=== PATIENT | female | born 1985 | race Caucasian/White ===

== ENCOUNTER 2021-07-22 01:53 | Inpatient (IN) | payer OTHER, SELFPAY ==
[2021-07-22] VITALS (17 sets, daily range): BP systolic 90–117; BP diastolic 52–80; PULSE 54–71; RESP 16–18; TEMP 36.2–36.8; O2SAT 98–100; BMI 21.9
--- NOTE | ~2021-07-22 | US_ITS ---
EXAMINATION: US ABDOMEN LIMITED CLINICAL INFORMATION: Rule out cholecystitis. COMPARISON: CT from earlier today TECHNIQUE: Real-time imaging of the right upper quadrant abdominal viscera. FINDINGS: PANCREAS: The visualized proximal portion of the pancreas is unremarkable. The distal portion is obscured secondary to overlying bowel gas. LIVER: The liver is normal in size. The liver contour is normal. Parenchymal echogenicity is normal. No focal hepatic lesion. There is no intrahepatic biliary duct dilatation seen. GALLBLADDER: The gallbladder is distended with wall thickness of the upper limits of normal. Gallbladder sludge is identified. No discrete shadowing gallstones are seen. Pericholecystic fluid is present. Right upper quadrant tenderness was reported during the exam. COMMON BILE DUCT: Normal in caliber measuring up to 0.5 cm in diameter. RIGHT KIDNEY: No hydronephrosis. No renal calculi or focal parenchymal lesions. The kidney measures 10.6 cm in maximum dimension. FREE FLUID: None. US/US abdomen limited IMPRESSION: Distended gallbladder with sludge, borderline wall thickening, and pericholecystic fluid. Though no discrete gallstones are seen, appearance may reflect acute cholecystitis in the proper clinical setting. If more definitive assessment is needed, nuclear medicine hepatobiliary scan may be helpful to assess for cystic duct obstruction.
--- NOTE | ~2021-07-22 | CT_ITS ---
EXAMINATION: CT ABDOMEN AND PELVIS WITH CONTRAST CLINICAL INFORMATION: Right upper quadrant pain, history of multiple obstructions and surgeries COMPARISON: 11/03/2018 TECHNIQUE: Multidetector volumetric images were obtained from the superior aspect of the liver through the pubic symphysis following administration 85 mL of Omnipaque 350 intravenous contrast. Sagittal and coronal reformatted images were obtained on the technologist's workstation. Oral contrast: No This CT examination was performed using dose optimization techniques as appropriate, variously including the following: *Automated exposure control *Adjustment of mA and/or kV according to patient size (this includes techniques or standardized protocols for targeted exams where dose is matched to indication/reason for exam; i.e. extremities or head) *Use of iterative reconstruction technique DLP: 371 mGy-cm FINDINGS: LUNG BASES: The visualized lung bases are unremarkable. LIVER, GALLBLADDER, AND BILIARY TREE: The liver is normal in size, shape, and attenuation. No focal hepatic lesion or biliary ductal dilatation is present. The gallbladder is distended with pericholecystic fluid and stranding, concerning for sequelae of acute cholecystitis. PANCREAS: Unremarkable. SPLEEN: Unremarkable. ADRENAL GLANDS: Unremarkable. KIDNEYS AND URETERS: The kidneys are normal in size, shape, and attenuation. A few scattered small renal hypodensities bilaterally statistically favor cysts, too small to characterize. No hydronephrosis, hydroureter, or obstructing calculi seen. No perinephric stranding. BLADDER: Unremarkable. GASTROINTESTINAL TRACT: Large bowel is located predominantly in the right abdomen, with: In the central to left abdomen. Enterocolonic anastomosis is present in the upper abdomen. Much of the colon is distended with gas and stool. No specific evidence for bowel obstruction. No significant bowel wall thickening is seen. No free air identified. ABDOMINAL WALL: No significant hernia is appreciated. LYMPH NODES: Normal. VASCULAR: Unremarkable. PELVIC VISCERA: Posterior uterine fibroid suspected. OSSEOUS STRUCTURES: Unremarkable. CT/CT abdomen pelvis w con IMPRESSION: 1. Distended gallbladder with adjacent fluid and stranding, concerning for acute cholecystitis. Correlation with ultrasound is recommended. 2. Distended colon with gas and stool, without specific findings for obstruction.
[2021-07-22 02:33] LABS: Appearance Urine HAZY; Color Urine YELLOW; Glucose Urine UA NEG (NEG); Leukocyte Esterase Urine NEG (NEG); Nitrite Urine NEG (NEG); Specific Gravity - Urine >= 1.030 (1.005-1.025); UACC Culture Trigger NO; Urine Blood 1+ (NEG); Urine Ketones NEG (NEG); Urine Protein NEG (NEG-TRACE)
[2021-07-22 02:36] LABS: UPreg QC Valid YES; Urine Pregnancy NEGATIVE (NEGATIVE)
[2021-07-22 02:41] LABS: Bacteria Urine 2+ /LPF; Calcium Oxalate Crystals Urine 4+ /LPF; Hyaline Casts Urine 0-2 /LPF; Mucus Urine TRACE /LPF; RBC Urine 0-2 /HPF (0); Squamous Epithelial Cell Urine 3+ /LPF; WBC Urine 0-2 /HPF (0-4)
--- NOTE | 2021-07-22 03:10 | ED_ITS ---
HPI - Abdominal Pain General Chief Complaint: Abdominal Pain Stated Complaint: R side abdominal pain Time Seen by Provider: 07/22/21 02:46 Source: patient Mode of arrival: ambulatory Limitations: no limitations History of Present Illness HPI narrative: Patient comes emergency room complaining of right upper quadrant pain starting approximately 12 hours ago. Patient states she feels constant pain radiating towards her back, patient complaining of nausea, patient has not had any vomiting or diarrhea. Of note, approximately 5 days ago, patient had a LEEP procedure done at [facility]. Patient states that she has been recovering well otherwise. 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 Patient has not had small bowel obstructions in adulthood. Patient denies fever chills, no chest pain, no shortness of breath. Related Data Home Medications Medication Instructions Recorded Confirmed No Known Home Meds 07/22/21 07/22/21 Allergies Allergy/AdvReac Type Severity Reaction Status Date / Time penicillin V Allergy Unknown hives Verified 03/01/18 00:00 Penicillins [PENICILLINS] Allergy Unknown RASH Unverified 06/13/20 15:34 Sulfa (Sulfonamide Allergy Unknown Verified 03/01/18 00:00 Antibiotics) Review of Systems Review of Systems Constitutional : No Weight loss, No Fever, No Chills, No Night Sweats, No Fatigue, No Malaise ENT/Mouth : No Hearing loss, No Ear Pain, No Nasal Congestion, No Sinus Pain, No Hoarseness, No sore throat, No Rhinorrhea, No Swallowing Difficulty Eyes: No Eye Pain, No Swelling, No Redness, No Foreign Body, No Discharge, No Vision Changes Cardiovascular : No Chest Pain, No SOB, No Dyspnea on Exertion, No Orthopnea, No Edema, No Palpitations Respiratory : No Cough, No Sputum, No Wheezing, No Smoke Exposure, No Dyspnea Gastrointestinal : Complaining of nausea, No Vomiting, No Diarrhea, complaining of abdominal distension, right upper quadrant pain Genitourinary : no irregular bleeding, No Dysuria, No Urinary Frequency, No [place], No Urinary Incontinence, No Urgency, No Flank Pain, No Urinary Flow Changes, No Hesitancy Musculoskeletal : No joint pain, No Myalgias, No Joint Swelling Skin : No Skin Lesions, No rash Neuro : No Weakness, No Numbness, No Paresthesias, No Loss of Consciousness, No Dizziness, No Headache Psych : No Anxiety/Panic, No Depression, No SI/HI/AH/VH, No Social Issues, Heme/Lymph: No Bruising, No Bleeding,No Lymphadenopathy Endocrine : No Polyuria, No Polydipsia, No Temperature Intolerance Physical Exam Vital Signs: Vital Signs: Last Vital Signs Temp 97.9 F 07/22/21 05:46 Pulse 64 07/22/21 06:48 Resp 16 07/22/21 06:48 BP 96/64 07/22/21 06:48 Pulse Ox 100 07/22/21 06:48 Body Mass Index 21.9 Const: Other: Appearance: Alert. Oriented X3. No acute distress but looks uncomfortable Eyes: Pupils equal, round and reactive to light. ENT: Pharynx normal. Neck: Normal inspection. Neck supple. No lymph nodes noted. No crepitus CVS: Normal heart rate and rhythm. Pulses normal. Normal S1 and S2 Respiratory: No respiratory distress. Breath sounds normal. No Wheezing. No rales Abdomen: Soft , distended, tender to palpation over the right upper quadrant and epigastric area. No pain in the left upper and lower quadrant, positive Grayson sign Skin: Skin warm and dry. Normal skin color. Normal skin turgor. Extremities: No lower extremity edema. No lower extremity edema. No Lacerations. No Rash Neuro: Oriented X 3. No motor deficit. No sensory deficit. Moving all extermities. No slurred speech. Course Course Course Narrative: The CT scan radiology report is not available yet, however the gallbladder looks grossly distended, concerning for acute cholecystitis, will go ahead and get an ultrasound. Patient is still having significant abdominal pain after morphine, patient will be given 1 mg of Dilaudid Patient was started on 750 mg of levofloxacin, and 500 mg of metronidazole I discussed the patient CT scan and ultrasound with Dr. Cooper. He will be in shortly to assess the patient, diagnosis is likely acute cholecystitis sign out given to Dr. Escalona [facility] - Abdominal Pain Lab Data Result diagrams: 07/22/21 02:59 07/22/21 02:59 Labs: Lab Results 07/22/21 07/22/21 07/22/21 Range/Units 02:15 02:15 02:59 WBC 9.3 (4.8-10.8) X10*3/uL RBC 3.90 L (4.20-5.50) X10*6/uL Hgb 12.3 (12.0-16.0) g/dl Hct 36.0 L (37-47) % MCV 92.3 (80-98) fL MCH 31.5 (27.0-33.0) pg MCHC 34.2 (31.0-35.0) g/dl RDW 12.1 (11.0-16.0) % Plt Count 274 (160-400) X10*3/uL MPV 10.0 (9.4-12.3) fL Immature Gran % (Auto) 0.3 (0.0-0.4) % Neut % (Auto) 71.0 (45-73) % Lymph % (Auto) 19.7 L (20-40) % [place] % (Auto) 6.9 (2-11) % Eos % (Auto) 1.9 (0-4) % Baso % (Auto) 0.2 (0-2) % Lymph # (Auto) 1.8 (1.2-4.9) X10*3/uL [place] # (Auto) 0.6 (0.1-1.2) X10*3/uL Eos # (Auto) 0.2 (0.0-0.4) X10*3/uL Baso # (Auto) 0.0 (0.0-0.2) X10*3/uL Abs Immat Gran (auto) 0.03 (0.00-0.03) X10*3/uL Absolute Neuts (auto) 6.6 (2.0-8.3) X10*3/uL Absolute Nucleated RBC 0.000 (0.0-0.012) X10*3/uL Nucleated RBC % (auto) 0.0 (0.0-0.2) /100WBC Sodium (135-145) mmol/L Potassium (3.3-5.1) mmol/L Chloride (96-108) mmol/L Carbon Dioxide (22-29) mmol/L Anion Gap (12-20) BUN (9-16) mg/dL Creatinine (0.5-1.4) mg/dL Estim Creat Clear Calc Estimated GFR Random Glucose (60-115) mg/dL Lactic Acid (0.5-2.0) mmol/L Calcium (8.4-10.2) mg/dL Total Bilirubin (0.0-1.0) mg/dL Direct Bilirubin (0.0-0.5) mg/dL AST (5-31) U/L ALT (0-31) U/L Alkaline Phosphatase (39-117) U/L Total Protein (6.5-8.0) g/dL Albumin (3.5-5.0) g/dL Urine Color YELLOW Urine Appearance HAZY Urine pH 6.0 (5.0-8.0) Ur Specific [place] >= 1.030 H (1.005-1.025) Urine Protein NEG (NEG-TRACE) MG/DL Urine Glucose (UA) NEG (NEG) MG/DL Urine Ketones NEG (NEG) MG/DL Urine Blood 1+ H (NEG) Urine Nitrite NEG (NEG) Ur Leukocyte Esterase NEG (NEG) Urine RBC 0-2 (0) /HPF Urine WBC 0-2 (0-4) /HPF Ur Squamous Epith Cells 3+ /LPF Calcium Oxalate Crystal 4+ /LPF Urine Bacteria 2+ /LPF Hyaline Casts 0-2 /LPF Urine Mucus TRACE /LPF Urine Test NEGATIVE (NEGATIVE) 07/22/21 07/22/21 Range/Units 02:59 02:59 WBC (4.8-10.8) X10*3/uL RBC (4.20-5.50) X10*6/uL Hgb (12.0-16.0) g/dl Hct (37-47) % MCV (80-98) fL MCH (27.0-33.0) pg MCHC (31.0-35.0) g/dl RDW (11.0-16.0) % Plt Count (160-400) X10*3/uL MPV (9.4-12.3) fL Immature Gran % (Auto) (0.0-0.4) % Neut % (Auto) (45-73) % Lymph % (Auto) (20-40) % [place] % (Auto) (2-11) % Eos % (Auto) (0-4) % Baso % (Auto) (0-2) % Lymph # (Auto) (1.2-4.9) X10*3/uL [place] # (Auto) (0.1-1.2) X10*3/uL Eos # (Auto) (0.0-0.4) X10*3/uL Baso # (Auto) (0.0-0.2) X10*3/uL Abs Immat Gran (auto) (0.00-0.03) X10*3/uL Absolute Neuts (auto) (2.0-8.3) X10*3/uL Absolute Nucleated RBC (0.0-0.012) X10*3/uL Nucleated RBC % (auto) (0.0-0.2) /100WBC Sodium 139 (135-145) mmol/L Potassium 3.9 (3.3-5.1) mmol/L Chloride 110 H (96-108) mmol/L Carbon Dioxide 21 L (22-29) mmol/L Anion Gap 12 (12-20) BUN 10 (9-16) mg/dL Creatinine 0.75 (0.5-1.4) mg/dL Estim Creat Clear Calc 83.6 Estimated GFR > 60 Random Glucose 100 (60-115) mg/dL Lactic Acid 1.4 (0.5-2.0) mmol/L Calcium 9.0 (8.4-10.2) mg/dL Total Bilirubin 0.5 (0.0-1.0) mg/dL Direct Bilirubin 0.2 (0.0-0.5) mg/dL AST 16 (5-31) U/L ALT 14 (0-31) U/L Alkaline Phosphatase 66 (39-117) U/L Total Protein 6.2 L (6.5-8.0) g/dL Albumin 3.9 (3.5-5.0) g/dL Urine Color Urine Appearance Urine pH (5.0-8.0) Ur Specific [place] (1.005-1.025) Urine Protein (NEG-TRACE) MG/DL Urine Glucose (UA) (NEG) MG/DL Urine Ketones (NEG) MG/DL Urine Blood (NEG) Urine Nitrite (NEG) Ur Leukocyte Esterase (NEG) Urine RBC (0) /HPF Urine WBC (0-4) /HPF Ur Squamous Epith Cells /LPF Calcium Oxalate Crystal /LPF Urine Bacteria /LPF Hyaline Casts /LPF Urine Mucus /LPF Urine Test (NEGATIVE) Imaging Data CT scan - abdomen: Radiologist's impression: FINDINGS: LUNG BASES: The visualized lung bases are unremarkable.? LIVER, GALLBLADDER, AND BILIARY TREE: The liver is normal in size, shape, and attenuation. No focal hepatic lesion or biliary ductal dilatation is present. The gallbladder is distended with pericholecystic fluid and stranding, concerning for sequelae of acute cholecystitis.? PANCREAS: Unremarkable.? SPLEEN: Unremarkable.? ADRENAL GLANDS: Unremarkable.? KIDNEYS AND URETERS: The kidneys are normal in size, shape, and attenuation. A few scattered small renal hypodensities bilaterally statistically favor cysts, too small to characterize. No hydronephrosis, hydroureter, or obstructing calculi seen. No perinephric stranding. BLADDER: Unremarkable.? GASTROINTESTINAL TRACT: Large bowel is located predominantly in the right abdomen, with: In the central to left abdomen. Enterocolonic anastomosis is present in the upper abdomen. Much of the colon is distended with gas and stool. No specific evidence for bowel obstruction. No significant bowel wall thickening is seen. No free air identified.? ABDOMINAL WALL: No significant hernia is appreciated.? LYMPH NODES: Normal. VASCULAR: Unremarkable. PELVIC VISCERA: Posterior uterine fibroid suspected.? OSSEOUS STRUCTURES: Unremarkable.? CT/CT abdomen pelvis w con IMPRESSION: 1.? Distended gallbladder with adjacent fluid and stranding, concerning for acute cholecystitis. Correlation with ultrasound is recommended. 2.? Distended colon with gas and stool, without specific findings for obstruction. Discharge Plan Discharge Clinical Impression: Abdominal pain Patient Disposition: Home, Self-Care Prescriptions: No Action No Known Home Meds RF: 0 Stand Alone Forms: Work/School Release Interventions: ED Discharge Assessment Last Done: 07/22/21 03:20 [facility] Past Medical History Medical History (Updated 07/22/21 @ 06:04 by Codie Shafer MD) IBS (irritable bowel syndrome) Intestinal obstruction Reflux esophagitis Surgical abdomen Social History Social History Alcohol intake: current Alcohol intake frequency: a few times a month Alcohol type: wine and hard liquor Patient Tobacco Use Status: Current everyday Tobacco user Use of substances other than those prescribed or required for medical reasons: No Advance Directives: No Advance Directives Information Provided: No Patient : No
[2021-07-22 03:16] LABS: MANUAL DIFF FLAG NO
[2021-07-22 03:21] LABS: Basophils Percent Auto 0.2 % (0-2); Eosinophils Absolute Auto 0.2 X10*3/uL (0.0-0.4); Eosinophils Percent Auto 1.9 % (0-4); Hemoglobin 12.3 g/dl (12.0-16.0); Imm Gran Abs Auto 0.03 X10*3/uL (0.00-0.03); Imm Gran Pct Auto 0.3 % (0.0-0.4); Lymphocytes Absolute Auto 1.8 X10*3/uL (1.2-4.9); Lymphocytes Percent Auto 19.7 % (20-40); Mean Corpuscular HGB Conc 34.2 g/dl (31.0-35.0); Mean Corpuscular Hemoglobin 31.5 pg (27.0-33.0); Mean Corpuscular Volume 92.3 fL (80-98); Monocytes Absolute Auto 0.6 X10*3/uL (0.1-1.2); Monocytes Percent Auto 6.9 % (2-11); Neutrophils Absolute Auto 6.6 X10*3/uL (2.0-8.3); Platelet Count 274 X10*3/uL (160-400); Red Cell Distribution Width 12.1 % (11.0-16.0); White Blood Count 9.3 X10*3/uL (4.8-10.8)
[2021-07-22 03:26] LABS: Lactic Acid 1.4 mmol/L (0.5-2.0)
[2021-07-22 03:32] LABS: Alanine Aminotransferase 14 U/L (0-31); Albumin Level 3.9 g/dL (3.5-5.0); Alkaline Phosphatase 66 U/L (39-117); Anion Gap 12 (12-20); Aspartate Amino Transferase 16 U/L (5-31); Bilirubin Direct 0.2 mg/dL (0.0-0.5); Bilirubin Total 0.5 mg/dL (0.0-1.0); Blood Urea Nitrogen 10 mg/dL (9-16); Carbon Dioxide 21 mmol/L (22-29); Chloride 110 mmol/L (96-108); Creatinine Clr Calc Pharmacy 83.6; Estimated Glomerular Filt Rate > 60; Glucose Random 100 mg/dL (60-115); Potassium 3.9 mmol/L (3.3-5.1); Sodium 139 mmol/L (135-145); Total Protein 6.2 g/dL (6.5-8.0)
[2021-07-22] MEDS: 0.9 % Sodium Chloride 1,000 ML 999 ML IVCONT ×2 (03:45→06:13)
[2021-07-22] MEDS: ondansetron HCL 4 MG/2 ML VIAL IVPUSH ×2 (03:46→08:14)
[2021-07-22] MEDS: Morphine Sulfate 4 MG/ML CARTRIDGE IVPUSH ×2 (03:49→06:13)
[2021-07-22] MEDS: iohexoL 350 MG/ML 100 ML INFUS..BTL 85 ML IV (04:07)
[2021-07-22] MEDS: HYDROmorphone HCl 1 MG/ML SYRINGE IVPUSH (04:44)
--- NOTE | 2021-07-22 04:53 | PC.NURSE ---
pt taken to ultra sound.
[2021-07-22] MEDS: metroNIDAZOLE/NS 500 MG/100 ML PIGGYBACK 100 MG IV (05:47)
[2021-07-22] MEDS: levoFLOXacin/D5W 750 MG/150 ML PIGGYBACK 100 MG IV (06:45)
--- NOTE | 2021-07-22 07:00 | PC.NURSE ---
report taken from lewis wahl pt here for r side abd pain w nausea, awaiting general surgeon consult this morning, pt w extensive abd sx hx. pain in control att, resting comfortably in stretcher. all questions and comments answered at this time.
--- NOTE | 2021-07-22 07:21 | PC.NURSE ---
dr garcia at bedside for consult
--- NOTE | 2021-07-22 08:18 | PC.NURSE ---
pt nauseous and vomiting, given zofran iv. wctm for effect.
[2021-07-22] MEDS: Dextrose 5 % and 0.45 % NaCl 1,000 ML 80 ML IVCONT ×2 (09:42→22:16)
--- NOTE | 2021-07-22 12:54 | P.HPGS_ITS ---
History of Present Illness History of Present Illness Date of Service: 07/22/21 Chief complaint: R side abdominal pain Narrative: Bharti Street is a 35 year old female who came to the emergency room early this morning because of abdominal pain. She says this started around 03:00 o'clock yesterday afternoon. She describes mostly on the entire right side of her abdomen, right chest, all the way to the right hip area. She says that this was constant and persisted throughout the night. She has had some nausea this morning. She says that she has chronic GI issues and used to see a black jack dealer all the time. She has not seen 1 since last year. She has had 11 abdominal surge archie since she was an because of what she described as ?obstruction? over intestines. She currently states that her pain has improved significantly as has very minimal pain at this time. Review of Systems Constitutional: Constitutional: Denies chills and Denies fever(s) Cardiovascular: Cardiovascular: Denies chest pain, Denies dyspnea and Denies dyspnea on exertion Respiratory: Respiratory: Denies cough, Denies dyspnea and Denies dyspnea on exertion Gastrointestinal: Gastrointestinal: Denies hematochezia and Denies change in bowel habits Genitourinary: Genitourinary: Denies hematuria Musculoskeletal: Musculoskeletal: Denies back pain and Denies limited range of motion Neurologic: Denies focal weakness and Denies convulsions Psychiatric: Psychiatric: Denies depression and Denies mood swings PMFSH Past Medical History Medical History IBS (irritable bowel syndrome) Intestinal obstruction Reflux esophagitis Surgical abdomen Social History Social History Household Members: Children Housing: House Housing Other:: two family home Do you presently have visiting nurse or other home services: No Alcohol intake: current Alcohol intake frequency: a few times a month Alcohol type: wine and hard liquor Patient Tobacco Use Status: Current everyday Tobacco user Tobacco use type: Cigarette e-Cigarette/Vaping Use: Never Used Second Hand Smoke Exposure: Yes Substance Use Type: Marijuana service: No Current occupational status: employed Meds Allergies Allergy/AdvReac Type Severity Reaction Status Date / Time penicillin V Allergy Unknown hives Verified 03/01/18 00:00 Penicillins [PENICILLINS] Allergy Unknown RASH Verified 07/22/21 17:26 Sulfa (Sulfonamide Allergy Unknown Unknown Verified 07/22/21 17:26 Antibiotics) Active Medications: Current Medications Dextrose/Sodium Chloride (D51/2ns) 1,000 mls @ 80 mls/hr IVCONT .[id number] [facility] Last Admin: 07/22/21 09:42 Dose: 80 mls/hr Documented by: Morphine Sulfate (Morphine Sulfate 4 Mg/Ml Cartridge) 2 mg IVPUSH Q4H PRN; Protocol PRN Reason: Pain, Severe (Pain Scale 7-10) Ondansetron HCl (Ondansetron Hcl 4 Mg/2 Ml Vial) 4 mg IVPUSH Q8H PRN PRN Reason: Nausea and Vomiting Oxycodone HCl (Oxycodone Hcl Immed Release 5 Mg Tablet) 5 mg PO Q6H PRN PRN Reason: Pain, Moderate (Pain Scale 4-6 Sodium Chloride (0.9 % Sodium Chloride Flush 3 Ml Syringe) 3 ml IVFLUSH QSHIFT [facility] Physical Exam Vital Signs: Vital Signs: Last Vital Signs Temp 97.6 F 07/22/21 10:18 Pulse 57 07/22/21 10:18 Resp 18 07/22/21 10:18 BP 101/63 07/22/21 10:18 Pulse Ox 99 07/22/21 10:18 Body Mass Index 21.9 Const: General: comfortable and no acute distress Orientation/consciousness: patient oriented x3 Neck: Neck: Yes no lymphadenopathy Resp: Auscultation: clear to auscultation bilaterally Cardio: Rhythm: regular rhythm GI: Other: Currently no Grayson sign, very minimal tenderness to deep palpation, diffuse; multiple surgical scars on the abdomen Palpation (GI): Soft to palpation, nontender and no guarding Neuro: General: patient oriented x3 Results Results Labs: Short CBC 07/22/21 Range/Units 02:59 WBC 9.3 (4.8-10.8) X10*3/uL Hgb 12.3 (12.0-16.0) g/dl Hct 36.0 L (37-47) % Plt Count 274 (160-400) X10*3/uL BMP 07/22/21 02:59 Sodium 139 Potassium 3.9 Chloride 110 H Carbon Dioxide 21 L BUN 10 Creatinine 0.75 Calcium 9.0 Liver Function 07/22/21 Range/Units 02:59 Total Bilirubin 0.5 (0.0-1.0) mg/dL Direct Bilirubin 0.2 (0.0-0.5) mg/dL AST 16 (5-31) U/L ALT 14 (0-31) U/L Alkaline Phosphatase 66 (39-117) U/L Albumin 3.9 (3.5-5.0) g/dL Urine 07/22/21 07/22/21 Range/Units 02:15 02:15 Urine Color YELLOW Urine Appearance HAZY Urine pH 6.0 (5.0-8.0) Ur Specific [place] >= 1.030 H (1.005-1.025) Urine Protein NEG (NEG-TRACE) MG/DL Urine Glucose (UA) NEG (NEG) MG/DL Urine Test NEGATIVE (NEGATIVE) Abdomen CT scan report/results: report reviewed and image reviewed CT scan - pelvis: report reviewed and image reviewed Assessment and Plan (1) Abdominal pain: Status: Acute She describes pain initially as on the right chest, right side of the abdomen all the way to the right hip. She says that this had become diffuse over time. Currently she has minimal pain and tenderness. I have reviewed her CAT scan and ultrasound. She does not have gallstones but has some borderline thickening of the gallbladder and distension, suggestive of acalculous cholecystitis. She has no leukocytosis. She has no fever and has normal liver function tests. Her diagnosis is uncertain at this time as she also has chronic history of IBS along with multiple abdominal surgeries. She has a very benign exam. I had recommended to her to be admitted at least for observation to see how she does. She initially stated that she wanted to leave the hospital as she has a trip to [place] coming up. I was able to convince her to stay at least for tonight so we can follow her. Her mother was with her during the discussion. Quality Stroke Does the patient have a stroke diagnosis?: No VTE Prior VTE?: No VTE Risk Level:: Medical - low VTE Device Contraindication: Treatment Not Indicated VTE Drug Contraindication: Treatment Not Indicated Procedures Date of Service Date of Service: 07/22/21
--- NOTE | 2021-07-22 15:50 | PM.EVENT ---
Event Note Date of Service: 07/22/21 Event Note: Some nausea Abdominal pain almost resolved Stable vital signs Abdomen soft, nontender at this time, no guarding rebound Keep on clear liquids for today Nausea medications Repeat labs tomorrow morning Patient understands plan
--- NOTE | 2021-07-22 17:01 | PC.NURSE ---
Admit today for medical management of acute cholecystitis. IV fluids running. Nausea has improved, thus also improving her pain. She is tolerating clear liquids in small doses, resting well.
[2021-07-22] MEDS: oxyCODONE HCl Immed Release 5 MG TABLET PO (17:42)
[2021-07-23 07:27] VITALS: BP 99/61; PULSE 60; RESP 17; TEMP 36.2; O2SAT 98
[2021-07-23 07:29] LABS: Hematocrit 34.9 % (37-47); Hemoglobin 11.5 g/dl (12.0-16.0); Mean Corpuscular Hemoglobin 30.7 pg (27.0-33.0); Mean Corpuscular Volume 93.3 fL (80-98); Mean Platelet Volume 10.5 fL (9.4-12.3); Platelet Count 245 X10*3/uL (160-400); Red Blood Count 3.74 X10*6/uL (4.20-5.50); Red Cell Distribution Width 12.2 % (11.0-16.0); White Blood Count 7.7 X10*3/uL (4.8-10.8)
[2021-07-23 07:51] LABS: Alanine Aminotransferase 18 U/L (0-31); Albumin Level 3.3 g/dL (3.5-5.0); Alkaline Phosphatase 58 U/L (39-117); Anion Gap 10 (12-20); Aspartate Amino Transferase 17 U/L (5-31); Bilirubin Direct 0.3 mg/dL (0.0-0.5); Bilirubin Total 0.7 mg/dL (0.0-1.0); Blood Urea Nitrogen 4 mg/dL (9-16); Calcium 8.3 mg/dL (8.4-10.2); Carbon Dioxide 23 mmol/L (22-29); Chloride 110 mmol/L (96-108); Creatinine Clr Calc Pharmacy 89.5; Estimated Glomerular Filt Rate > 60; Glucose Random 95 mg/dL (60-115); Potassium 3.9 mmol/L (3.3-5.1); Sodium 139 mmol/L (135-145); Total Protein 5.4 g/dL (6.5-8.0)
[2021-07-23] MEDS: Dextrose 5 % and 0.45 % NaCl 1,000 ML 80 ML IVCONT ×2 (09:45→23:06)
[2021-07-23 11:19] VITALS: BP 98/59; PULSE 66; RESP 18; TEMP 36.1; O2SAT 99
[2021-07-23 14:57] VITALS: BP 100/58; PULSE 66; RESP 20; TEMP 36.8; O2SAT 99
--- NOTE | 2021-07-23 15:14 | P.PNGS_ITS ---
Subjective Subjective Date of Service: 07/23/21 Interval history: Has had very early mild pain Last pain medication was last night Started on regular diet for lunch Says she tolerated this although with some bloating Had bowel movements Physical Exam Vital Signs: Vital Signs: Last Vital Signs Temp 98.2 F 07/23/21 14:57 Pulse 66 07/23/21 14:57 Resp 20 07/23/21 14:57 BP 100/58 L 07/23/21 14:57 Pulse Ox 99 07/23/21 14:57 Body Mass Index 21.9 Const: Other: Chemistry 07/22/21 07/23/21 02:59 06:33 Sodium 139 139 Potassium 3.9 3.9 Carbon Dioxide 21 L 23 BUN 10 4 L D Creatinine 0.75 0.70 Calcium 9.0 8.3 L D Hematology 07/22/21 07/23/21 02:59 06:33 WBC 9.3 7.7 Hgb 12.3 11.5 L Plt Count 274 245 Urinalysis 07/22/21 02:15 Urine Color YELLOW Urine Appearance HAZY Urine pH 6.0 Ur Specific [place]it y >= 1.030 H Urine Protein NEG Urine Glucose (UA) NEG Urine Ketones NEG Urine Blood 1+ H Urine Nitrite NEG Ur Leukocyte Ping ase NEG Urine RBC 0-2 Urine WBC 0-2 Ur Squamous Epith Cells 3+ Hyaline Casts 0-2 General: comfortable and no acute distress Eyes: Sclerae: sclerae normal Resp: Effort & Inspection: normal respiratory effort Cardio: Rate: regular rate GI: Other: Minimal diffuse tenderness to deep palpation, no guarding, no rebound, no Grayson's sign Palpation (GI): Soft to palpation, not firm and no guarding Procedures Date of Service Date of Service: 07/23/21 Progress Note: A&P Assessment and plan (1) Abdominal pain: Status: Acute Assessment and Plan: Has had no pain since last night No leukocytosis No Grayson's sign Tenderness is mostly diffuse, very mild Clinically not consistent with acute cholecystitis She does state she has some bloating Overall doing very well Re-evaluate in the morning and likely discharge Fall Risk Details Current Medications: Current Medications Dextrose/Sodium Chloride (D51/2ns) 1,000 mls @ 80 mls/hr IVCONT .[id number] [facility] Last Admin: 07/23/21 09:45 Dose: 80 mls/hr Documented by: Morphine Sulfate (Morphine Sulfate 4 Mg/Ml Cartridge) 2 mg IVPUSH Q4H PRN; Protocol PRN Reason: Pain, Severe (Pain Scale 7-10) Ondansetron HCl (Ondansetron Hcl 4 Mg/2 Ml Vial) 4 mg IVPUSH Q8H PRN PRN Reason: Nausea and Vomiting Oxycodone HCl (Oxycodone Hcl Immed Release 5 Mg Tablet) 5 mg PO Q6H PRN PRN Reason: Pain, Moderate (Pain Scale 4-6 Last Admin: 07/22/21 17:42 Dose: 5 mg Documented by: Sodium Chloride (0.9 % Sodium Chloride Flush 3 Ml Syringe) [facility] Admin: 07/23/21 07:43 Dose: Not Given Documented by: Time Spent With Patient Time: Total time spent is greater than 50% in coordination of care (as documented) at patient's floor/unit and/or counseling patient: Time with patient: 15 - 24 minutes Quality Stroke Does the patient have a stroke diagnosis?: No VTE Prior VTE?: No VTE Risk Level:: Medical - low VTE Device Contraindication: Treatment Not Indicated VTE Drug Contraindication: Treatment Not Indicated
[2021-07-23] MEDS: Simethicone 80 MG TAB.CHEW PO (17:32)
[2021-07-23] MEDS: 0.9 % Sodium Chloride Flush 3 ML SYRINGE IVFLUSH (20:12)
[2021-07-23] MEDS: Morphine Sulfate 4 MG/ML CARTRIDGE 2 MG IVPUSH (20:16)
[2021-07-23] MEDS: oxyCODONE HCl Immed Release 5 MG TABLET PO (23:05)
[2021-07-23 23:38] VITALS: BP 98/49; PULSE 57; RESP 18; TEMP 36.1; O2SAT 98
[2021-07-24 07:47] VITALS: BP 103/57; PULSE 69; RESP 18; TEMP 36.7; O2SAT 98
--- NOTE | 2021-07-24 08:48 | PM.PNGS ---
Subjective Subjective Date of Service: 07/24/21 Interval history: She says she has some bloating and had to take pain medications last night for this Had BMs yesterday Passing flatus States that she is ready to go home Tolerating diet Physical Exam Vital Signs: Vital Signs: Last Vital Signs Temp 98.0 F 07/24/21 07:47 Pulse 69 07/24/21 07:47 Resp 18 07/24/21 07:47 BP 103/57 L 07/24/21 07:47 Pulse Ox 98 07/24/21 07:47 Body Mass Index 21.9 Const: General: comfortable and no acute distress Resp: Effort & Inspection: normal respiratory effort Cardio: Rate: regular rate GI: Inspection: No distended Palpation (GI): Soft to palpation, not firm, nontender, no guarding and not rigid Procedures Date of Service Date of Service: 07/24/21 Progress Note: A&P Assessment and plan (1) Abdominal pain: Status: Acute Assessment and Plan: Clinically not consistent with the acute cholecystitis She has had no leukocytosis No Grayson's sign Her main complaints are mostly diffuse abdominal bloating She does have a long history of IBS she says Exam remains very benign The patient says she is ready to be discharged Explained to her to watch her diet and to make sure that she establishes a follow-up with a juke box servicer again I also advised her to find a primary care physician she does not have 1 currently I can not see her for follow-up visit in the office She understands the plan well and is in agreement Fall Risk Details Current Medications: Current Medications Dextrose/Sodium Chloride (D51/2ns) 1,000 mls @ 80 mls/hr IVCONT .[id number] [facility] Last Admin: 07/23/21 23:06 Dose: 80 mls/hr Documented by: Morphine Sulfate (Morphine Sulfate 4 Mg/Ml Cartridge) 2 mg IVPUSH Q4H PRN; Protocol PRN Reason: Pain, Severe (Pain Scale 7-10) Last Admin: 07/23/21 20:16 Dose: 2 mg Documented by: Ondansetron HCl (Ondansetron Hcl 4 Mg/2 Ml Vial) 4 mg IVPUSH Q8H PRN PRN Reason: Nausea and Vomiting Oxycodone HCl (Oxycodone Hcl Immed Release 5 Mg Tablet) 5 mg PO Q6H PRN PRN Reason: Pain, Moderate (Pain Scale 4-6 Last Admin: 07/23/21 23:05 Dose: 5 mg Documented by: Simethicone (Simethicone 80 Mg Tab.Chew) 80 mg PO QIDWMHS PRN PRN Reason: Gas Last Admin: 07/23/21 17:32 Dose: 80 mg Documented by: Sodium Chloride (0.9 % Sodium Chloride Flush 3 Ml Syringe) 3 ml IVFLUSH QSHIFT [facility] Last Admin: 07/24/21 07:11 Dose: Not Given Documented by: Time Spent With Patient Time: Total time spent is greater than 50% in coordination of care (as documented) at patient's floor/unit and/or counseling patient: Time with patient: 15 - 24 minutes Quality Stroke Does the patient have a stroke diagnosis?: No VTE Prior VTE?: No VTE Risk Level:: Medical - low VTE Device Contraindication: Treatment Not Indicated VTE Drug Contraindication: Treatment Not Indicated
--- NOTE | 2021-07-28 10:44 | PM.DS ---
DS: Providers Provider Date of Service: 06/24/21 Date of admission: 07/22/21 08:10 Primary care physician: None Physician DS: Diagnosis Discharge Diagnosis (1) Abdominal pain: Status: Acute DS: Summary Hospital Course Hospital Course: 35-year-old female admitted on 07/22/2021 because of right-sided abdominal pain. She says that extended all the way from the right chest to the right hip area. She had no leukocytosis. Her LFTs were normal. Her CAT scan ultrasound did not show gallstones but there was some borderline thickening of the gallbladder along with distension suggestive of acalculous cholecystitis. However, clinical exam was not consistent with cholecystitis. I however admitted her for observation. She continued to have a benign exam during the hospital stay. She was kept on clear liquids. Her abdominal pain was generally below intensity. Her diet was therefore gradually advanced. She she also stated that she had long-standing GI problems with IBS and had been previously seeing a bridge ironworker. She continued to improved and tolerated regular diet. She was therefore discharged on 07/24/2021. At the time of her discharge, she was tolerating regular diet and did not have any significant pain or tenderness. She did not have any leukocytosis or any fever. Status at Discharge Functional status at discharge: independent ambulation Time Spent with Patient Time attestation: Total time spent providing and/or coordinating discharge services: Discharge coordination time: Less than 30 minutes Quality: Stroke Does the patient have a stroke diagnosis?: No Physical Exam Vital Signs: Vital Signs: Last Vital Signs Temp 98.0 F 07/24/21 07:47 Pulse 69 07/24/21 07:47 Resp 18 07/24/21 07:47 BP 103/57 L 07/24/21 07:47 Pulse Ox 98 07/24/21 07:47 Body Mass Index 21.9 Const: General: comfortable and no acute distress Orientation/consciousness: patient oriented x3 Neck: Neck: Yes no lymphadenopathy Resp: Auscultation: clear to auscultation bilaterally Cardio: Rhythm: regular rhythm GI: Palpation (GI): Soft to palpation, nontender and no guarding Neuro: General: patient oriented x3 DS: Data Imaging CT scan - abdomen: Radiologist's impression: ITS Impressions Abdomen/Pelvis CT 07/22/21 02:57 IMPRESSION: 1. Distended gallbladder with adjacent fluid and stranding, concerning for acute cholecystitis. Correlation with ultrasound is recommended. 2. Distended colon with gas and stool, without specific findings for obstruction. Abdomen Ultrasound 07/22/21 04:39 IMPRESSION: Distended gallbladder with sludge, borderline wall thickening, and pericholecystic fluid. Though no discrete gallstones are seen, appearance may reflect acute cholecystitis in the proper clinical setting. If more definitive assessment is needed, nuclear medicine hepatobiliary scan may be helpful to assess for cystic duct obstruction. Discharge Plan Discharge Patient Disposition: Home, Self-Care Discharge Diagnosis: abdominal pain Referrals: Judd Cooper MD [Physician] - 2 Weeks Physician,None [Primary Care Provider] - 1 Week Discharge Medications: New simethicone 125 mg tablet,chewable 125 mg PO QID PRN (Reason: for gassiness/bloating) Qty: 20 RF: 0 Discharge Orders: Discharge Order (Routine); Ordered 07/24/21 Ordered By: Judd Cooper Diet: low fat, low cholesterol Activity on Discharge: As tolerated Stand Alone Forms: Patient Portal Discharge page, Work/School Release Care Plan Goals: Return to normal activities gradually. Health Concerns: IBS, surgical abdomen Plan of Treatment: DIscharge to home, f/u with PCP Assessment: Improved Discharge Date/Time: 07/24/21 12:07
== END 2021-07-24 12:07 | disposition home or self-care (01) | DRG 251 ==
LOC: HO.ED 08:02 → HO.EDOVER 08:19 → HO.IMC 08:49
PROVIDERS: Emergency Medicine; Admitting Provider Surgery; Emergency Provider Emergency Medicine; Visit Provider Surgery
DX: R10.9 Unspecified abdominal pain (principal); F17.210 Nicotine dependence, cigarettes, uncomplicated; Z88.0 Allergy status to penicillin; Z88.2 Allergy status to sulfonamides; Z71.6 Tobacco abuse counseling
CPT/HCPCS: 36415; 74177; 76705; 80048; 80076; 81001; 81025; 83605; 85025; 85027; 87040; 96361; 96365; 96375; 96376; 99285; J1170; J1956; J2270; J2405; Q9967

== ENCOUNTER 2023-03-02 13:21 | Emergency (ER) | payer BC, SELFPAY ==
--- NOTE | 2023-03-02 13:31 | ED_ITS ---
HPI - Arrhythmia/Palpitations General Chief Complaint: General Medical Stated Complaint: Chest palpitations randomly Time Seen by Provider: 03/02/23 18:23 Source: patient Mode of arrival: ambulatory Limitations: no limitations History of Present Illness HPI narrative: 37 y/o female with history of short gut syndrome, malabsorption, presents to the ER for evaluation of weird chest sensations for the last 3 days. Feels like a pause and release. Occurred several times today. No chest pain. She states she has had them for the last 6 months but they have become more frequent lately. No associated SOB, chest pain, dizziness or lightheadedness. She sometimes get a warm sensation across her chest. She denies any cardiac or pulmonary history. MD complaint: palpitations and irregular heart beat Onset (ago): month(s) Duration: intermittent Severity: moderate Context: occurred during rest Associated symptoms: denies other symptoms Related Data Previous Rx's Medication Instructions Recorded simethicone 125 mg chewable tablet 125 mg PO QID PRN for 07/24/21 gassiness/bloating #20 tabs Allergies Allergy/AdvReac Type Severity Reaction Status Date / Time penicillin V Allergy Unknown hives Verified 03/02/23 13:37 Penicillins [PENICILLINS] Allergy Unknown RASH Verified 03/02/23 13:37 Sulfa (Sulfonamide Allergy Unknown Unknown Verified 03/02/23 13:37 Antibiotics) Review of Systems Review of Systems: Yes all other systems are reviewed and are negative [facility] Past Medical History Medical History IBS (irritable bowel syndrome) Intestinal obstruction Reflux esophagitis Surgical abdomen Social History Social History Household Members: Children Housing: House Housing Other:: two family home Do you presently have visiting nurse or other home services: No Alcohol intake: current Alcohol intake frequency: a few times a month Alcohol type: wine and hard liquor Patient Tobacco Use Status: Current everyday Tobacco user Tobacco use type: Cigarette e-Cigarette/Vaping Use: Never Used Second Hand Smoke Exposure: Yes Substance Use Type: Marijuana Advance Directives: No Advance Directives Information Provided: No service: No Current occupational status: employed Physical Exam Vital Signs: Vital Signs: Last Vital Signs Temp 97.4 F 03/02/23 13:32 Pulse 84 03/02/23 13:32 Resp 18 03/02/23 13:32 BP 146/91 H 03/02/23 13:32 Pulse Ox 100 03/02/23 13:32 O2 Del Method Room Air 03/02/23 13:32 BMI result Body Mass Index 25.3 Appearance: Alert. Oriented X3. No acute distress. Head: normocephalic, atraumatic. Eyes: Pupils equal, round and reactive to light. ENT: Pharynx normal. No tonsillar swelling or exudate. Neck: Normal inspection. Neck supple. CVS: Normal heart rate and rhythm. Pulses normal. Respiratory: No respiratory distress. Breath sounds normal. Abdomen: Soft and nontender. +BS x4 Skin: Skin warm and dry. Normal skin color. Normal skin turgor. No rashes. Extremities: No lower extremity edema. No joint swelling. Neuro/psych: Oriented X 3. No motor deficit. No sensory deficit. CN II-XII intact. Normal speech and cognition. Course Course Course Narrative: RME - 37 y/o female with history of short gut syndrome, malabsorption, presents to the ER for evaluation of weird chest sensations for the last 3 days. Feels like a pause and release. Occurred several times today. No chest pain. HR 80s in triage. Plan: EKG, lab workup Medical Decision Making Medical Decision Making [facility] Narrative: 37 yo female presenting with intermittent palpitations acute on chronic. EKG is unchanged from prior. No PVCs seen. Electrolytes and TSH are normal. She is asking if she can go home. Her labs and VS were reviewed. Comfortable w/ d/c home with PCP and Cardiology follow up. Differential Diagnosis Differential Diagnoses: The differential diagnosis associated with the presentation includes benign palpitations, SVT, PVCs, PACs, afib, bradyarrythmia, tachyarrythmia, anxiety Lab Data [facility] Lab Attestation statement: I reviewed the patient's lab results. unremarkable 03/02/23 13:55 03/02/23 13:55 Labs: Lab Results 03/02/23 03/02/23 Range/Units 13:55 13:55 WBC 10.5 (4.8-10.8) X10*3/uL RBC 4.12 L (4.20-5.50) X10*6/uL Hgb 12.9 (12.0-16.0) g/dl Hct 38.2 (37.0-47.0) % MCV 92.7 (80.0-98.0) fL MCH 31.3 (27.0-33.0) pg MCHC 33.8 (31.0-35.0) g/dl RDW 12.0 (11.0-16.0) % Plt Count 329 (160-400) X10*3/uL MPV 9.1 L (9.4-12.3) fL Immature Gran % (Auto) 0.4 (0.0-0.4) % Neut % (Auto) 63.7 (45-73) % Lymph % (Auto) 28.0 (20-40) % Morris % (Auto) 6.5 (2-11) % Eos % (Auto) 1.1 (0-4) % Baso % (Auto) 0.3 (0-2) % Lymph # (Auto) 2.9 (1.2-4.9) X10*3/uL Morris # (Auto) 0.7 (0.1-1.2) X10*3/uL Eos # (Auto) 0.1 (0.0-0.4) X10*3/uL Baso # (Auto) 0.0 (0.0-0.2) X10*3/uL Abs Immat Gran (auto) 0.04 H (0.00-0.03) X10*3/uL Absolute Neuts (auto) 6.7 (2.0-8.3) x10*3/uL Absolute Nucleated RBC 0.000 (0.0-0.012) X10*3/uL Nucleated RBC % (auto) 0.0 (0.0-0.2) /100WBC Sodium 139 (135-145) mmol/L Potassium 4.0 (3.3-5.1) mmol/L Chloride 111 H (96-108) mmol/L Carbon Dioxide 19 L (22-29) mmol/L Anion Gap 13 (12-20) BUN 9 (9-16) mg/dL Creatinine 0.66 (0.5-1.4) mg/dL Estim Creat Clear Calc 102.6 Estimated GFR > 60 Random Glucose 91 (60-115) mg/dL Calcium 9.0 D (8.4-10.2) mg/dL Magnesium 1.8 (1.6-2.6) mg/dL Total Bilirubin 0.4 (0.0-1.0) mg/dL Direct Bilirubin 0.1 (0.0-0.5) mg/dL AST 33 H (5-31) U/L ALT 42 H (0-31) U/L Alkaline Phosphatase 64 (39-117) U/L Total Protein 6.6 (6.5-8.0) g/dL Albumin 4.0 (3.5-5.0) g/dL TSH 1.36 (0.32-4.0) uIU/mL Independent Interpretation I performed an independent interpretation of an: EKG Interpretation: normal sinus rhythm, HR 68, normal MO interval, normal QTC, no PVCs. No ST segment elevations or depressions. no change from prior in 2013 Independent Historian Clinical information obtained from an independent historian. History obtained from or confirmed by: Parent External Record Review External record reviewed: Outpatient record and Prior outpatient labs Critical Care Time Critical Care Time Critical Care Time: No Discharge Plan Discharge Clinical Impression: Heart palpitations Patient Disposition: Home, Self-Care Instructions: Heart Palpitations (DC) Additional Instructions: your lab workup today was unremarkable EKG was unchanged from prior recommend following up with your primary care doctor and cardiology if you have ongoing symptoms - name and number below Prescriptions: No Action simethicone 125 mg tablet,chewable 125 mg PO QID PRN (Reason: for gassiness/bloating) Qty: 20 0RF Referrals: [facility] [place] [facility] [Provider Group] (palpitations) Ching Nieves FNP [Primary Care Provider] - Stand Alone Forms: Work/School Release Interventions: ED Discharge Assessment Last Done: 03/02/23 18:25 Discharge Date/Time: 03/02/23 18:29
[2023-03-02 13:32] VITALS: BP 146/91; PULSE 84; RESP 18; TEMP 36.3; O2SAT 100; BMI 25.3
--- NOTE | 2023-03-02 13:34 | ECG_ITS ---
Test Reason : PALPITATIONS Blood Pressure : / mmHG Vent. Rate : 068 BPM Atrial Rate : 068 BPM P-R Int : 170 ms QRS Dur : 078 ms QT Int : 394 ms P-R-T Axes : 045 -13 010 degrees QTc Int : 418 ms Normal sinus rhythm Low voltage QRS Borderline ECG When compared with ECG of 20-SEP-2014 16:10, No significant change was found Referred By: Ching Alberts Electronically Signed By:Dagoberto Velez
[2023-03-02 14:04] LABS: MANUAL DIFF FLAG NO
[2023-03-02 14:07] LABS: Basophils Percent Auto 0.3 % (0-2); Eosinophils Absolute Auto 0.1 X10*3/uL (0.0-0.4); Eosinophils Percent Auto 1.1 % (0-4); Hematocrit 38.2 % (37.0-47.0); Hemoglobin 12.9 g/dl (12.0-16.0); Imm Gran Abs Auto 0.04 X10*3/uL (0.00-0.03); Imm Gran Pct Auto 0.4 % (0.0-0.4); Lymphocytes Absolute Auto 2.9 X10*3/uL (1.2-4.9); Mean Corpuscular HGB Conc 33.8 g/dl (31.0-35.0); Mean Corpuscular Hemoglobin 31.3 pg (27.0-33.0); Mean Corpuscular Volume 92.7 fL (80.0-98.0); Mean Platelet Volume 9.1 fL (9.4-12.3); Monocytes Absolute Auto 0.7 X10*3/uL (0.1-1.2); Monocytes Percent Auto 6.5 % (2-11); Neutrophils Absolute Auto 6.7 x10*3/uL (2.0-8.3); Neutrophils Percent Auto 63.7 % (45-73); Platelet Count 329 X10*3/uL (160-400); Red Blood Count 4.12 X10*6/uL (4.20-5.50); White Blood Count 10.5 X10*3/uL (4.8-10.8)
[2023-03-02 14:31] LABS: Alanine Aminotransferase 42 U/L (0-31); Alkaline Phosphatase 64 U/L (39-117); Anion Gap 13 (12-20); Aspartate Amino Transferase 33 U/L (5-31); Bilirubin Direct 0.1 mg/dL (0.0-0.5); Bilirubin Total 0.4 mg/dL (0.0-1.0); Blood Urea Nitrogen 9 mg/dL (9-16); Carbon Dioxide 19 mmol/L (22-29); Chloride 111 mmol/L (96-108); Creatinine Clr Calc Pharmacy 102.6; Estimated Glomerular Filt Rate > 60; Glucose Random 91 mg/dL (60-115); Magnesium 1.8 mg/dL (1.6-2.6); Sodium 139 mmol/L (135-145); Total Protein 6.6 g/dL (6.5-8.0)
[2023-03-02 14:46] LABS: TSH reflex Free T4 1.36 uIU/mL (0.32-4.0)
== END 2023-03-02 18:29 | disposition home or self-care (01) ==
PROVIDERS: Physician Assistant; Emergency Provider Emergency Medicine; PCP Nurse Practitioner Family
DX: R00.2 Palpitations (principal); F17.210 Nicotine dependence, cigarettes, uncomplicated; F12.90 Cannabis use, unspecified, uncomplicated; Z79.899 Other long term (current) drug therapy
CPT/HCPCS: 36415; 80048; 80076; 83735; 84443; 85025; 93005; 99282; 99283

== ENCOUNTER 2023-04-23 14:34 | Outpatient (AMB) | payer BC, SELFPAY ==
[2023-04-23 14:40] VITALS: BP 114/76; PULSE 72; RESP 12; TEMP 36.5; O2SAT 99; BMI 24.7
--- NOTE | 2023-04-23 14:40 | A.OFFPC_ITS ---
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 Patient states that shes been gaining alot of weight even though she doesnt eat much. Patient states that 2 years ago she was told she had sludge in her gallbladder but never followed up. Patient states that she thinks that she may have developed Crohn Disease. Detention Attendant Required: No Accompanied by: Daughter Allergies penicillin V Allergy (Unknown, Verified 04/23/23 14:52) hives Penicillins [PENICILLINS] Allergy (Unknown, Verified 04/23/23 14:52) RASH Sulfa (Sulfonamide Antibiotics) Allergy (Unknown, Verified 04/23/23 14:52) Unknown Tobacco use date assessed: 04/23/23 Dental Screening Dental Screen Date: 04/23/23 Did you have a dental visit in the last 12 months?: No Did you have a dental problem in the last 6 months where you did not have access to dental care?: No Was dental information given to patient?: Patient has dentist HPI HPI Comments History of Present Illness Details 37-year-old female presents to [facility]. She notes she was last evaluated by her former PCP 4-5 years ago. She has past medical history significant GI issues including IBS and intestinal obstruction. No acute symptoms today. She denies diagnose for anxiety and depression. She reports h/o 11 surgical procedures of her large intestine. 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 She requests GI referral. She was evaluated at [facility] on 03/02/2023 for ?weird chest sensations, for the past 6 months. EKG and labs were normal. She notes she has a follow up appointment with [facility]iology next month. [facility] Medical History (Updated 04/23/23 @ 15:34 by Aaron Soliz CNP) Depression Eczema Generalized headaches IBS (irritable bowel syndrome) Intestinal obstruction Memory loss Reflux esophagitis Sludge in gallbladder Surgical abdomen Surgical History (Updated 04/23/23 @ 14:56 by Stefanie Wang MA) H/O resection of large bowel Family History Brother Cholangiocarcinoma Mother Diabetes High blood pressure Father Diabetes High blood pressure Sister Diabetes Fatty liver Social History Household Members: Children Housing: House Housing Other:: two family home Do you presently have visiting nurse or other home services: No Alcohol intake: current Alcohol intake frequency: a few times a month Alcohol type: wine and hard liquor Patient Tobacco Use Status: Former Tobacco user Tobacco use type: Cigarette e-Cigarette/Vaping Use: Former Use Second Hand Smoke Exposure: Yes Substance Use Type: Marijuana service: No Current occupational status: employed 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 1. Little interest or pleasure in doing things: nearly every day 2. Feeling down, depressed, or hopeless: several days 3. Trouble falling or staying asleep, or sleeping too much: nearly every day 4. Feeling tired or having little energy: nearly every day 5. Poor appetite or overeating: nearly every day 6. Feeling bad about yourself - or that you are a failure or have let yourself or your family down: several days 7. Trouble concentrating on things, such as reading the newspaper or watching television: several days 8. Moving or speaking so slowly that other people could have noticed. Or the opposite - being so fidgety or restless that you have been moving around a lot more than usual: nearly every day 9. Thoughts that you would be better off or of hurting yourself in some way: not at all Total score: 18 Depression Screening Interpretation: Positive Depression Screening Follow-up: Change in Medication and Community Mental Health Worker F/U Source: Developed by Drs. Sav Gregory, Susie Manzanares, Paolo Farfan and colleagues, with an educational gurdeep from [employer]. Thrive Questionnaire Date Thrive assessed: 04/23/23 I am a: Patient What is your living situation today?: I have a steady place to live Within the past 12 months, did the food you bought not last and you didn't have the money to get more?: Never true Within the past 12 months, did you worry whether your food would run out before you got money to buy more?: Never true Do you have trouble paying for medicines?: No Do you have trouble getting transportation to medical appointments?: No Do you have trouble paying your heating and electricity bill?: No Do you have trouble taking care of your child, family member or friend?: No Do you have trouble with day-to-day activities such as bathing, preparing meals, shopping, managing finances, etc.?: No Are you currently unemployed and looking for a job?: No Are you interested in more education?: No Please select the resources that you would like help with: None Currently or been in a relationship where the following occur: no concerns reported AUDIT C Alcohol Use Questionnaire (AUDIT-C) 1. How often do you have a drink containing alcohol?: 2-4 times a month 2. How many drinks containing alcohol do you have on a typical day when you are drinking?: 3 or 4 3. How often do you have six or more drinks on one occasion?: Less than monthly Total Score: 4 CHEMA-7 AMB Questionnaire CHEMA-7 Date CHEMA - 7 assessed: 04/23/23 Feeling nervous, anxious, or on edge: 3 = Nearly every day Not being able to stop or control worryin = Several days Worrying too much about different things: 1 = Several days Trouble relaxin = Nearly every day Being so restless that it is hard to sit still: 1 = Several days Becoming easily annoyed or irritable: 3 = Nearly every day Feeling afraid as if something awful might happen: 0 = Not at all Total CHEMA-7 score (0-4 normal; 5-9 mild; 10-14 moderate; 15-21 severe): 12 Source: Developed by Drs. Sav Gregory, Susie Manzanares, Paolo Farfan and colleagues, with an educational gurdeep from [employer]. Review of Systems Const Details: Const Denies chills, Denies fatigue, Denies fever(s), Denies headache(s) and Denies weakness ENT Denies dizziness and Denies headache(s) Card Denies chest pain, Denies lightheadedness, Denies dyspnea and Denies other (Palpitations) Resp Denies cough, Denies dyspnea, Denies wheezing and Denies other ( shortness of breath) GI Denies abdominal pain, Denies melena, Denies hematochezia, Denies change in bowel habits, Denies dyspepsia and Denies nausea Denies hematuria and Denies dysuria Musc Denies abnormal gait, Denies myalgias, Denies arthralgias, Denies numbness and Denies tingling Skin/Breast Denies rash, Denies unusual bruising and Denies wounds Neuro Denies abnormal gait, Denies dizziness, Denies headache(s), Denies memory loss, Denies numbness, Denies Sensory deficit (Neuro), Denies tingling and Denies weakness Psych Denies anxiety and Denies depression, Denies memory loss Endo Denies fatigue Aller/Immun Denies wheezing Physical exam (Primary Care) Vital Signs: Last Vital Signs Temp 97.7 F 04/23/23 14:40 Pulse 72 04/23/23 14:40 Resp 12 04/23/23 14:40 BP 114/76 04/23/23 14:40 Pulse Ox 99 04/23/23 14:40 Oxygen Delivery Method Room Air 04/23/23 14:40 BMI result Body Mass Index 24.7 Tobacco/Smoking Status: Tobacco use Status Patient Tobacco Use Status Current everyday Tobacco 07/24/21 08:14 Tobacco use type Cigarette 07/22/21 10:25 e-Cigarette/Vaping Use Never Used 07/22/21 10:25 Depression Screening Interpretation: Positive Depression Screening Follow-up: Change in Medication and Community Mental Health Worker F/U Currently or been in a relationship where the following occur: no concerns reported Const Other: General: no acute distress and well developed Nutritional Appearance: well nourished Orientation/consciousness: patient oriented x3 HENMT Head: Yes normocephalic and Yes atraumatic Eyes General: appearance normal, both eyes and all related structures Pupils: Equal, round and reactive pupils present EOM: EOMs intact bilaterally Resp Effort & Inspection: normal respiratory effort Auscultation: clear to auscultation bilaterally Cardio Rate: regular rate Rhythm: regular rhythm Heart sounds: S1 normal heart sound present, S2 normal heart sound present, no gallops, no murmurs and no rubs GI Palpation (GI): No Abdominal aortic bruit present, Soft to palpation, nontender, No hepatosplenomegaly present and No Rebound tenderness present Auscultation: normal bowel sounds General: Yes no CVA tenderness Back/Spine/Pelvis Back: no CVA tenderness Cervical Spine: cervical ROM normal and No Cervical spine tenderness Thoracic/Lumbar Spine: thoraco-lumbar ROM normal, No pain with thoraco-lumbar ROM, No thoracic spinal tenderness and No lumbar spinal tenderness Extrem General: Yes normal to inspection, No edema and No calf tenderness Skin General: warm and dry. Normal skin color. Normal skin turgor Lesions: no lesions Rashes: no rashes Trauma: no lacerations or abrasions Wounds: no wounds Nails: normal Neuro General: patient oriented x3, gait normal and no focal neuro deficit Cranial nerves: Yes Equal, round and reactive pupils present Cognition (Neuro): normal cognition Gait exam (Neuro): Normal gait present Sensory Exam: No Sensory deficit (Neuro) Psych Appearance: grossly normal Affect: normal affect Attitude: cooperative Thought process: Normal thought process present Assessment and Plan Assessment & Plan (1) Anxiety and depression: Code(s): F41.9 - Anxiety disorder, unspecified; F32.A - Depression, unspecified Plan: PHQ-9 and CHEMA-7 scores revealed moderately severe depression and moderate anxiety respectively Sertraline ordered. Take as prescribed Routine exercise encouraged Referred to the community navigator to help her connect to a therapist Follow-up with cardiology as planned Follow-up in 1 month or return sooner with worsening or new symptoms Verbalized understanding and agreed with treatment plan. (2) IBS (irritable bowel syndrome): Code(s): K58.9 - Irritable bowel syndrome without diarrhea Plan: She reports h/o 11 surgical procedures of her large intestine. 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 She requests GI referral. GI referral made Follow-up with symptoms or concerns Verbalized understanding and agreed with the plan. (3) Laboratory tests ordered as part of a complete physical exam (CPE): Code(s): Z00.00 - Encounter for general adult medical examination without abnormal findings Plan: Recent blood work were unremarkable except for elevated liver enzymes. Will repeat liver panel. Will check lipid panel. Fas and fasting glucose. labs ordered as part of a complete physical exam. Advised to fast for at least 10 hours before getting labs drawn. May drink water Verbalized understanding and agreed with treatment plan. Orders: Orders Glucose Fasting Today Z00.00 - Encounter for general adult medical examination without abnormal findings Lipid Panel Today Z00.00 - Encounter for general adult medical examination without abnormal findings Liver Panel Today Z00.00 - Encounter for general adult medical examination without abnormal findings UA CC w/rflx Micro + Cult Today Z00.00 - Encounter for general adult medical examination without abnormal findings Referrals Gastroenterology Referral K58.9 - Irritable bowel syndrome without diarrhea Nurse Navigator Referral F32.A - Depression, unspecified, F41.9 - Anxiety disorder, unspecified Medications: New sertraline 25 mg PO DAILY 30 tabs 3RF 30 days Coding Level of Care Code New Pt Level 3 (90098) Diagnoses Anxiety and depression F41.9; F32.A IBS (irritable bowel syndrome) K58.9 Laboratory tests ordered as part of a complete physical exam (CPE) Z00.00 Time Spent (min) 35
== END 2023-04-23 15:40 | disposition home or self-care (01) ==
PROVIDERS: PCP Nurse Practitioner Family; Visit Provider Nurse Practitioner Family
DX: F41.9 Anxiety disorder, unspecified (principal); F32.A Depression, unspecified; K58.9 Irritable bowel syndrome, unspecified; Z00.00 Encounter for general adult medical examination without abnormal findings
CPT/HCPCS: 99203

== ENCOUNTER 2023-05-05 06:17 | Outpatient (REF) | payer BC, SELFPAY ==
[2023-05-05 07:36] LABS: Alanine Aminotransferase 36 U/L (0-31); Albumin Level 3.9 g/dL (3.5-5.0); Alkaline Phosphatase 61 U/L (39-117); Aspartate Amino Transferase 29 U/L (5-31); Bilirubin Direct 0.2 mg/dL (0.0-0.5); Bilirubin Total 0.4 mg/dL (0.0-1.0); Cholesterol 136 mg/dL; Glucose Fasting 95 mg/dL (60-99); HDL Cholesterol 56 mg/dL; LDL Cholesterol Calculated 50 mg/dl; Total Protein 6.8 g/dL (6.5-8.0); Triglycerides 153 mg/dL
[2023-05-05 08:29] LABS: Appearance Urine Clear; Color Urine Yellow; Glucose Urine UA Negative (Negative); Leukocyte Esterase Urine Negative (Negative); Nitrite Urine Negative (Negative); PH 6.5 (5.0-9.0); Urine Blood Negative (Negative); Urine Ketones Trace mg/dL (Negative); Urine Protein Negative (Neg-Trace)
== END 2023-05-05 06:18 | disposition home or self-care (01) ==
LOC: HO.LAB 06:17
PROVIDERS: PCP Nurse Practitioner Family; Visit Provider Nurse Practitioner Family
DX: Z00.00 Encounter for general adult medical examination without abnormal findings (principal); R00.2 Palpitations
CPT/HCPCS: 36415; 80061; 80076; 81003; 82947; 93005

== ENCOUNTER 2023-05-05 13:36 | Outpatient (AMB) | payer BC, SELFPAY ==
[2023-05-05 13:57] VITALS: BP 124/80; PULSE 66; BMI 25.0
--- NOTE | 2023-05-05 13:57 | A.OFFVIS_ITS ---
Intake Vital Signs 05/05/23 13:57 Height 5 ft 2 in Weight 136 lb 10.986 oz BMI 25.0 BP 124/80 Blood Pressure Location Lt brachial Position Sitting Pulse 66 Intake Visit Reasons: ER follow up/Heart palpitations Intake Note: ER follow up Media Marketing Manager Required: No Accompanied by: Self / Same As Patient Allergies penicillin V Allergy (Unknown, Verified 05/05/23 13:58) hives Penicillins [PENICILLINS] Allergy (Unknown, Verified 05/05/23 13:58) RASH Sulfa (Sulfonamide Antibiotics) Allergy (Unknown, Verified 05/05/23 13:58) Unknown Medication List - Last Reconciled 05/05/23 by Moris Jaimes MD No Known Home Meds HPI HPI Comments History of Present Illness Details Bharti is here for consultation regarding palpitations. She states that she gets sensations of heart fluttering at different times. Her description might suggest PACs or PVCs. The last for a few seconds to a minute or so at the most; nothing prolonged. No other symptoms like anginal-type chest pains or shortness of breath of concern. No history of any coronary disease or cardiomyopathy or anything cardiac related in the past. [facility] Medical History (Updated 05/05/23 @ 14:12 by Moris Jaimes MD) Depression Eczema Generalized headaches IBS (irritable bowel syndrome) Intestinal obstruction Memory loss Reflux esophagitis Sludge in gallbladder Surgical abdomen Surgical History H/O resection of large bowel Family History Brother Cholangiocarcinoma Mother Diabetes High blood pressure Father Diabetes High blood pressure Sister Diabetes Fatty liver Social History (Updated 05/05/23 @ 14:00 by Nancy Chin) Household Members: Children Housing: House Housing Other:: two family home Do you presently have visiting nurse or other home services: No Alcohol intake: current Alcohol intake frequency: a few times a month Alcohol type: wine and hard liquor Patient Tobacco Use Status: Former Tobacco user e-Cigarette/Vaping Use: Former Use Second Hand Smoke Exposure: Yes Substance Use Type: Marijuana service: No Current occupational status: employed 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[employer]er [employer] [place] Cognitive needs: No Hearing needs: No Vision needs: No Review of Systems Const Denies chills, Denies daytime sleepiness, Denies fatigue, Denies fever(s), Denies frequent falls, Denies night sweats, Denies snoring, Denies weakness, Denies weight gain and Denies weight loss Eyes Denies loss of vision ENT Denies dizziness and Denies hearing loss Card Denies chest pain, Denies chest pain with activity, Denies syncope, Denies rapid heart rate, Denies edema, Denies claudication, Denies leg edema, Denies lightheadedness, Denies palpitations, Denies dyspnea, Denies dyspnea on exertion and Denies orthopnea Resp Denies cough, Denies excessive phlegm production, Denies dyspnea, Denies dyspnea on exertion, Denies snoring and Denies wheezing GI Denies abdominal pain, Denies hematochezia, Denies change in bowel habits, Denies change in stool character, Denies heartburn, Denies nausea and Denies vomiting Denies hematuria, Denies urinary frequency and Denies dysuria Musc Denies arthralgias, Denies muscle weakness, Denies numbness and Denies tingling Skin/Breast Denies nail changes and Denies rash Neuro Denies Abnormal speech present, Denies dizziness, Denies syncope, Denies frequent falls, Denies loss of vision, Denies memory loss, Denies numbness, Denies tingling and Denies weakness Psych Denies depression and Denies memory loss Endo Denies fatigue and Denies palpitations Aller/Immun Denies wheezing Physical Exam Vital Signs: Last Vital Signs Pulse 66 05/05/23 13:57 BP 124/80 05/05/23 13:57 BMI result Body Mass Index 25.0 Const General: comfortable and no acute distress Orientation/consciousness: patient oriented x3 HEENT Other: Unremarkable Head: Yes normal to inspection Neck Neck: Yes normal visual inspection Chest Chest palpation & inspection: normal inspection of the chest Resp Auscultation: clear to auscultation bilaterally Cardio Palpation: normal PMI Heart sounds: S1 normal heart sound present, S2 normal heart sound present, no gallops, no murmurs and no rubs GI Palpation (GI): Soft to palpation Back/Spine/Pelvis Other: unremarkable Skin General skin exam: no rashes or lesions noted Neuro General: patient oriented x3 Speech: No Abnormal speech present Extrem General: Yes normal to inspection Psych Mental Status: mental status grossly normal Office Procedures EKG Details: EKG with sinus rhythm at 66/Min; no significant ST-T changes and otherwise unremarkable[place] [id number], Complete Assessment & Plan Assessment & Plan (1) Heart palpitations: Code(s): R00.2 - Palpitations Plan Possible PACs versus PVCs. Doubt anything sustained. We can get an echocardiogram/Holter. Otherwise, mainly reassurance. Orders: Orders CA echo transthoracic complete Today R00.2 - Palpitations ECG 3 day holter monitor Today R00.2 - Palpitations Coding Level of Care Code New Pt Level 3 (32639) Diagnoses Heart palpitations R00.2 CPT Codes EKG - CPT: 05899-[id number], Complete ([id number])
== END 2023-05-05 14:21 | disposition home or self-care (01) ==
PROVIDERS: PCP Nurse Practitioner Family; Visit Provider Internal Medicine
DX: R00.2 Palpitations (principal)
CPT/HCPCS: 93010; 99203

== ENCOUNTER → 2023-05-12 14:34 | Outpatient (REF) | payer BC, SELFPAY ==
--- NOTE | 2023-05-12 14:37 | HM_ITS ---
Conclusion: 1. Patient was monitored for total period of 2 days and 23 hours 2. Baseline was normal sinus rhythm with average heart of 80 beats per minute 3. Rare PVCs noted with total burden of 0.06% 4. No significant pauses noted 5. Three out of the 22 reported markers with symptoms of heavy heartbeat, pause and release, racing in the heart correlated with isolated PVCs. All of the other events correlated with sinus rhythm. MTDD
== END ==
LOC: HO.CARD 14:34
PROVIDERS: PCP Nurse Practitioner Family; Visit Provider Internal Medicine
DX: R00.2 Palpitations (principal)
CPT/HCPCS: 93242

== ENCOUNTER → 2023-05-12 14:37 | Outpatient (BNV) | payer BC, SELFPAY | PROVIDERS: PCP Nurse Practitioner Family; Visit Provider Internal Medicine Cardiovascular Disease | DX: I49.3 Ventricular premature depolarization (principal) | CPT/HCPCS: 93244 ==

== ENCOUNTER 2023-05-17 13:16 | Outpatient (AMB) | payer BC, SELFPAY ==
--- NOTE | 2023-05-17 13:23 | MHC.OFFVIS ---
Intake Vital Signs 05/17/23 13:24 Height 5 ft 2 in Weight 134 lb 7.712 oz BMI 24.6 BP 126/84 Blood Pressure Location Lt brachial Position Sitting Pulse 68 Intake Visit Reasons: Irritable bowel syndrome wo Diarrhea Intake Note: Bharti presents in the office as a new patient for IBS wo diarrhea. CC: She states that she always has diarrhea but lately she is having issues with bowel movements. She will not have solid BMs but lately she will go to the bathroom once a day and everything she eats give her a stomach pains and she feels like she looks 5 months . No visible blood in her stool but she has had hx of blood in the stool and scar tissue. Has not seen a GI in the past 10 years. She was hospitalized here for her gall bladder. Clinical Marketing Manager Required: No Allergies penicillin V Allergy (Unknown, Verified 05/17/23 13:26) hives Penicillins [PENICILLINS] Allergy (Unknown, Verified 05/17/23 13:26) RASH Sulfa (Sulfonamide Antibiotics) Allergy (Unknown, Verified 05/17/23 13:26) Unknown HPI HPI Comments History of Present Illness Details This is a 37 year old female with hx of extensive gastrointestinal surgeries in infancy who is here for abdominal pain and changes in bowel habits. Pt reports hx of ?part of colon not working? ?? NEC, which necessitated removal and then followed by reconstruction. Reports having 11 surgeries in total in her first year of life. Has had hx of chronic abd discomfort with diarrhea which she has attributed to this. However for the past few months abd pain is more severe and happens more frequently. Associated now with ?relative? constipation i.e has 1 BM/day often with straining. Abd discomfort gets worse with this. Also noticing increase in bloating. Previous hx of smoking. No etOH use. PFSH Medical History Depression Eczema Generalized headaches IBS (irritable bowel syndrome) Intestinal obstruction Memory loss Reflux esophagitis Sludge in gallbladder Surgical abdomen Surgical History H/O resection of large bowel History of esophagogastroduodenoscopy (EGD) Hx of colonoscopy Family History Brother Cholangiocarcinoma Mother Diabetes High blood pressure Father Diabetes High blood pressure Sister Diabetes Fatty liver Social History Household Members: Children Housing: House Housing Other:: two family home Do you presently have visiting nurse or other home services: No Alcohol intake: current Alcohol intake frequency: a few times a month Alcohol type: wine and hard liquor Patient Tobacco Use Status: Former Tobacco user e-Cigarette/Vaping Use: Former Use Second Hand Smoke Exposure: Yes Substance Use Type: Marijuana service: No Current occupational status: employed Current occupation: S[employer] [place] Cognitive needs: No Hearing needs: No Vision needs: No Review of Systems Const All systems reviewed & are unremarkable except as noted in HPI and below Physical Exam Vital Signs: Last Vital Signs Pulse 68 05/17/23 13:24 BP 126/84 05/17/23 13:24 BMI result Body Mass Index 24.6 Gen appear: NAD HEENT: nonicteric, no cervical lymphadenopathy Chest: CTA CVS: Regular S1/S2 Abd: R sided hypertrophic scar, transverse scar, L sided small scar, soft, nontender, nondistended, bowel sounds + Ext: no peripheral edema Neuro: A/Ox3, noted to move all extremities spontaneously Psych: interacting appropriately Assessment & Plan Assessment & Plan (1) IBS (irritable bowel syndrome): Code(s): K58.9 - Irritable bowel syndrome without diarrhea (2) Abdominal pain: Code(s): R10.9 - Unspecified abdominal pain (3) Change in bowel habit: Code(s): R19.4 - Change in bowel habit Plan Appears consistent with IBS-mixed type. However will obtain work up to exclude malabsorption, thyroid issues, symptomatic cholelithiasis. Adhesive disease also strongly suspected. If work up comes back normal, will consider Amitiza In the meantime, pt to increase fiber intake. Take miralax as needed. Orders: Orders Calprotectin, Fecal Today R10.9 - Unspecified abdominal pain Comprehensive Met. Panel Today R10.9 - Unspecified abdominal pain TSH reflex Free T4 Today R10.9 - Unspecified abdominal pain Complete Blood Count no Diff Today R10.9 - Unspecified abdominal pain Immunoglobulin A Today R10.9 - Unspecified abdominal pain Transglutaminase IgA Today R10.9 - Unspecified abdominal pain US abdomen complete Today R10.9 - Unspecified abdominal pain Coding Level of Care Code New Pt Level 4 (78170) Diagnoses IBS (irritable bowel syndrome) K58.9 Abdominal pain R10.9 Change in bowel habit R19.4
[2023-05-17 13:24] VITALS: BP 126/84; PULSE 68; BMI 24.6
== END 2023-05-17 13:44 | disposition home or self-care (01) ==
PROVIDERS: PCP Nurse Practitioner Family; Visit Provider Internal Medicine
DX: K58.9 Irritable bowel syndrome, unspecified (principal); R10.9 Unspecified abdominal pain; R19.4 Change in bowel habit
CPT/HCPCS: 99204

== ENCOUNTER → 2023-05-17 13:16 | Outpatient (BNVA) | payer BC, SELFPAY | PROVIDERS: PCP Nurse Practitioner Family; Visit Provider Internal Medicine ==

== ENCOUNTER → 2023-06-07 12:45 | Outpatient (REF) | payer BC, SELFPAY ==
--- NOTE | 2023-06-07 12:48 | CA_ITS ---
Transthoracic Echocardiogram Patient (Last, First, Middle): Bharti Street, Gender: Female Date of : 1985 Age: 37 Procedure Date: 06/07/2023 Procedure Type: Transthoracic Echocardiogram Location: OP Height: 154.94 cm Weight: 62.14 kg BSA: 1.61 m2 Heart Rate: 66 bpm BP: 105 / 80 mmHg Pharmacy Innovation Assistant: WILMA Referring MD: Moris Jaimes MD Symptoms: R00.2 - Palpitations Study Quality: Fair ECG Rhythm: Sinus Conclusions: - The left ventricular systolic function is normal. The calculated ejection fraction is 59% by biplane method. - No obvious valvular pathology seen on this study. Findings Left Ventricle Normal left ventricular cavity size. There is normal left ventricular wall thickness. The left ventricular systolic function is normal. The calculated ejection fraction is 59% by biplane method. There is no evidence of regional wall motion abnormalities. Diastolic function is normal for age. Right Ventricle Normal right ventricular cavity size and systolic function. Atria Both atria are normal in size. Aortic Valve There is a normal trileaflet aortic valve. There is no aortic valve stenosis. There is no aortic valve regurgitation. Mitral Valve The mitral valve appears normal. There is trace mitral valve regurgitation. There is no mitral valve stenosis. Pulmonic Valve The pulmonic valve is likely normal. Tricuspid Valve Normal tricuspid valve structure. There is trace tricuspid valve regurgitation. There is no evidence of pulmonary hypertension. Great Vessels The asc aorta is normal in size. Venous The inferior vena cava is normal in size and collapses greater than 50% with inspiration. Pericardium/Pleural There is no evidence of pericardial effusion. Prior Study Comparison No prior study available for comparison. Recommendations, Care & Conclusions No obvious valvular pathology seen on this study. Measurements 2D Linear Measurements IVSd: 1.00 0.6-0.9/0.6-1.0 cm LVIDd: 3.80 3.9-5.3/4.2-5.9 cm LVIDd Index: 2.36 2.4-3.2/2.2-3.1 cm/m2 LVIDs: 2.60 2.0-3.6 cm LVPWd: 0.70 0.7-1.1 cm LA Diam: 2.70 2.7-3.8/3.0-4.0 cm LAIDs Index: 1.68 1.5-2.3 cm/m2 LV Mass: 115.96 67-162/88-224 g LV Mass Index: 72.03 43-95/49-115 g/m2 LVOT Diam: 1.80 3.0+(-)1.3 cm 2D Systolic Function EF 4C: 57.10 >55% EF 2C: 63.20 >55% EF BiP: 59.10 >55% Mitral Valve MV Pk E: 0.94 MV PK A: 0.50 MV Decel Time: 218.00 E/A: 1.90 E'Lateral: 13.80 E'Medial: 12.10 E/E' Med: 7.80 E/E' Lat: 6.80 PHT: 64.00 MVA PHT: 3.44 Decel [place]: 4.33 Aortic Valve AoV Pk Royer: 1.08 AoV Mn Royer: 0.88 AoV VTI: 0.27 AoV Pk Grad: 5.00 Aov Mn Grad: 3.00 ARACELIS Cont.VTI: 2.16 LVOT LVOT Pk Royer: 1.07 LVOT Mn Royer: 0.73 LVOT VTI: 0.23 LVOT Pk Grad: 5.00 LVOT Mn Grad: 2.00 LVOT Diam: 1.80 LVOT Area: 2.54 Diastolic Function MV Pk E: 0.94 MV Pk A: 0.50 E/A: 1.90 E'Medial: 12.10 E/E' Med: 7.80 E' Laterial: 13.80 E/E' Lat: 6.80 Right Ventricle TAPSE (mm): 17.30 Tricuspid Valve TR Pk Royer: 1.48 TR Pk Grad: 9.00 RA Press: 3.00 RVSP: 12.00 Great Vessels Aorta Sinus of Valsalva: 2.30 2.0-3.5 cm Ao Asc: 3.00 2.1-3.4 cm Pulmonary Valve PV Pk Royer: 1.00 Peak PV Grad: 4.00 Updated in Other Vendor System with Status of Final Moris Jaimes MD electronically signed on 06/08/2023 11:10:47 AM with status of Final
== END ==
LOC: HO.CARD 12:45
PROVIDERS: PCP Nurse Practitioner Family; Visit Provider Internal Medicine
DX: R00.2 Palpitations (principal)
CPT/HCPCS: 93306

== ENCOUNTER → 2023-06-07 12:48 | Outpatient (BNV) | payer BC, SELFPAY | PROVIDERS: PCP Nurse Practitioner Family; Visit Provider Internal Medicine | DX: R94.31 Abnormal electrocardiogram [ECG] [EKG] (principal); R00.2 Palpitations | CPT/HCPCS: 93306 ==

== ENCOUNTER 2023-06-09 06:00 | Outpatient (REF) | payer BC, SELFPAY ==
--- NOTE | ~2023-06-09 | US_ITS ---
EXAMINATION: US ABDOMEN COMPLETE CLINICAL INFORMATION: Unspecified abdominal pain. COMPARISON: Ultrasound abdomen limited and CT abdomen and pelvis 07/22/2021. X-ray abdomen 08/25/2016. TECHNIQUE: Real-time imaging of the abdominal viscera. FINDINGS: PANCREAS: Normal. ABDOMINAL AORTA: The proximal, mid, and distal segments are normal in caliber. INFERIOR VENA CAVA: Visualized portions are normal. LIVER: The liver is normal in size. The liver contour is normal. There is diffuse increased liver parenchymal echogenicity, with pericholecystic sparing. No focal hepatic lesion. There is no intrahepatic biliary duct dilatation seen. GALLBLADDER: Normal. The gallbladder is physiologically distended without evidence of stones, sludge, polyps, wall thickening or pericholecystic fluid. COMMON BILE DUCT: Normal in caliber measuring 0.5 cm in diameter. RIGHT KIDNEY: At the lower pole, a 2 mm hyperechoic focus is seen, which does not meet formal ultrasound criteria for a calculus. No definite hydronephrosis. No renal calculi or focal parenchymal lesions. The kidney measures 10.6 cm in maximum dimension. LEFT KIDNEY: No hydronephrosis. No renal calculi or focal parenchymal lesions. The kidney measures 10.9 cm in maximum dimension. SPLEEN: Normal. The spleen measures 8.7 cm in maximum dimension. FREE FLUID: None. US/US abdomen complete IMPRESSION: 1. There is generalized increase in hepatic echotexture, consistent with fatty infiltration or hepatocellular disease. Please correlate clinically. Characteristic pericholecystic sparing favors fatty infiltration. No focal hepatic mass or intrahepatic biliary dilatation is seen. 2. Otherwise, unremarkable examination.
[2023-06-09 07:25] LABS: Hematocrit 38.5 % (37.0-47.0); Hemoglobin 12.9 g/dl (12.0-16.0); Mean Corpuscular HGB Conc 33.5 g/dl (31.0-35.0); Mean Corpuscular Hemoglobin 30.9 pg (27.0-33.0); Mean Corpuscular Volume 92.3 fL (80.0-98.0); Mean Platelet Volume 9.9 fL (9.4-12.3); Platelet Count 313 X10*3/uL (160-400); Red Blood Count 4.17 X10*6/uL (4.20-5.50); Red Cell Distribution Width 12.5 % (11.0-16.0); White Blood Count 8.1 X10*3/uL (4.8-10.8)
[2023-06-09 07:37] LABS: Alanine Aminotransferase 31 U/L (0-31); Albumin Level 3.8 g/dL (3.5-5.0); Alkaline Phosphatase 67 U/L (39-117); Anion Gap 11 (12-20); Aspartate Amino Transferase 26 U/L (5-31); Bilirubin Total 0.3 mg/dL (0.0-1.0); Blood Urea Nitrogen 9 mg/dL (9-16); Carbon Dioxide 22 mmol/L (22-29); Chloride 112 mmol/L (96-108); Estimated Glomerular Filt Rate > 60; Glucose Random 98 mg/dL (60-115); Potassium 4.2 mmol/L (3.3-5.1); Sodium 141 mmol/L (135-145); Total Protein 6.6 g/dL (6.5-8.0)
[2023-06-09 07:52] LABS: TSH reflex Free T4 2.74 uIU/mL (0.32-4.0)
[2023-06-11 17:38] LABS: Immunoglobulin A 101 mg/dL (47-310)
[2023-06-14 18:09] LABS: Transglutaminase IgA <1.0 U/mL
[2023-06-14 20:08] LABS: Calprotectin, Fecal 23 mcg/g
== END 2023-06-09 06:01 | disposition home or self-care (01) ==
LOC: HO.US 06:00
PROVIDERS: PCP Nurse Practitioner Family; Visit Provider Internal Medicine
DX: R10.9 Unspecified abdominal pain (principal)
CPT/HCPCS: 36415; 76700; 80053; 82784; 83993; 84443; 85027; 86364

== ENCOUNTER 2023-06-14 13:12 | Outpatient (AMB) | payer BC, SELFPAY ==
[2023-06-14 13:19] VITALS: BP 114/72; PULSE 69; BMI 25.2
--- NOTE | 2023-06-14 13:19 | A.OFFVIS_ITS ---
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 Today she reports that she is still getting periodic heart palpitations. Overall she says there less than when she 1st reported. At that time she was drinking caffeinated beverages and energy drinks. She describes feeling a surge in her chest followed by a strong beat. It cause her much concern. No presyncope, syncope, falls. No chest discomfort with exertion. No shortness of breath, PND, orthopnea or edema. Good activity tolerance. Her symptom mostly occurs when she is at rest. [facility], [facility]1983 Medical History Depression Eczema Memory loss Generalized headaches Sludge in gallbladder Intestinal obstruction Surgical abdomen Reflux esophagitis IBS (irritable bowel syndrome) Surgical History Hx of colonoscopy History of esophagogastroduodenoscopy (EGD) H/O resection of large bowel Family History Brother Cholangiocarcinoma Mother Diabetes High blood pressure Father Diabetes High blood pressure Sister Diabetes Fatty liver Social History Household Members: Children Housing: House Housing Other:: two family home Do you presently have visiting nurse or other home services: No Alcohol intake: current Alcohol intake frequency: a few times a month Alcohol type: wine and hard liquor Patient Tobacco Use Status: Former Tobacco user e-Cigarette/Vaping Use: Former Use Second Hand Smoke Exposure: Yes Substance Use Type: Marijuana service: No Current occupational status: employed 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 [employer] Cognitive needs: No Hearing needs: No Vision needs: No Review of Systems Const All systems reviewed & are unremarkable except as noted in HPI and below ENT Denies dizziness Card Details: pound and surge in chest Denies chest pain, Denies chest pain at rest, Denies chest pain with activity, Denies rapid heart rate, Denies pedal edema, Denies edema, Denies leg edema, Denies lightheadedness, Denies palpitations, Denies dyspnea, Denies dyspnea on exertion and Denies orthopnea Resp Denies cough, Denies dyspnea and Denies dyspnea on exertion GI Denies hematochezia and Denies change in stool character Musc Denies abnormal gait, Denies limited range of motion, Denies muscle cramps, Denies muscle weakness, Denies numbness, Denies radiating pain into limb, Denies stiffness and Denies tingling Neuro Denies abnormal gait, Denies dizziness, Denies numbness and Denies tingling Endo Denies palpitations Physical Exam Vital Signs: Last Vital Signs Pulse 69 06/14/23 13:19 BP 114/72 06/14/23 13:19 BMI result Body Mass Index 25.2 Const General: cooperative, healthy appearing, comfortable and no acute distress Orientation/consciousness: patient oriented x3 Neck Neck: Yes normal visual inspection Resp Effort & Inspection: normal respiratory effort Auscultation: clear to auscultation bilaterally, no rales, no rhonchi and no wheezes Cardio Jugular venous distension: no JVD Rate: regular rate Rhythm: regular rhythm Heart sounds: S1 normal heart sound present, S2 normal heart sound present, no murmurs and no rubs Neuro General: patient oriented x3 Psych Appearance: grossly normal Mental Status: mental status grossly normal Speech and movement: Normal speech and movement present Assessment & Plan Assessment & Plan (1) Heart palpitations: Code(s): R00.2 - Palpitations Plan: Report of heart palpitations consistent with extrasystoles. EKG done last visit showing sinus rhythm, no acute ST or T-wave abnormalities, normal LA, QRS and QTC intervals. No sustained rapid or irregular rates reported. Echocardiogram done 06/07/2023 showing EF 59%, no valve abnormalities and no regional wall motion abnormalities. Holter monitor done 05/12/2023 for 3 days showed sinus rhythm with average heart rate 80, rare PVCs with total burden 0.06%, 22 patient symptom markers 3 of which correlated with PVCs, the remainder correlated with sinus rhythm. Spent time reviewing test results with her. Discussed diagnosis of premature ventricular contractions. Offered reassurance that these beats are benign in a strong heart with normal EF. Discussed ongoing reduction in caffeinated beverages, no use of energy drinks, physical activity as tolerated. No further cardiac testing is needed at this point. No need for medical management. She will continue to monitor symptoms and notify this office if her PVCs become of increasing concern or frequency. Cardiology follow-up as needed. (2) PVCs (premature ventricular contractions): Code(s): I49.3 - Ventricular premature depolarization Coding Level of Care Code Est Pt Level 3 (41676) Diagnoses Heart palpitations R00.2 PVCs (premature ventricular contractions) I49.3 Time Spent (min) 24
== END 2023-06-14 14:03 | disposition home or self-care (01) ==
PROVIDERS: PCP Nurse Practitioner Family; Referring Provider Nurse Practitioner Family; Visit Provider Nurse Practitioner Family
DX: R00.2 Palpitations (principal); I49.3 Ventricular premature depolarization
CPT/HCPCS: 99213

== ENCOUNTER → 2023-06-14 13:12 | Outpatient (BNVA) | payer BC, SELFPAY | PROVIDERS: PCP Nurse Practitioner Family; Referring Provider Nurse Practitioner Family; Visit Provider Nurse Practitioner Family ==

== ENCOUNTER 2023-06-28 12:42 | Outpatient (AMB) | payer BC, SELFPAY ==
[2023-06-28 12:50] VITALS: BP 113/73; PULSE 63; BMI 25.2
--- NOTE | 2023-06-28 12:50 | A.OFFVIS_ITS ---
Intake Vital Signs 06/28/23 12:50 Height 5 ft 2 in Weight 137 lb 9.095 oz BMI 25.2 BP 113/73 Blood Pressure Location Lt brachial Position Sitting Pulse 63 Intake Visit Reasons: 6 week fu Intake Note: Bharti presents in the office today in 6 weeks follow up of IBS. CC: Patient continues to have acid reflux. She states she started to take Lubiprostone and has seen about a 25% improvement. She states when she first started to take medication she saw a lot of improvement but now, not so much. Denies any new GI symptoms today. 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 Pt reports hx of ?part of colon not working? ?? NEC, which necessitated removal and then followed by reconstruction. Reports having 11 surgeries in total in her first year of life. Has had hx of chronic abd discomfort with diarrhea which she has attributed to this. However for the past few months abd pain is more severe and happens more frequently. Associated now with ?relative? constipation i.e has 1 BM/day often with straining. Abd discomfort gets worse with this. Also noticing increase in bloating. Previous hx of smoking. No etOH use. 06/28/23: Was started on Amitiza 2 weeks ago. Noticed improvement in abd pain, bloating and constipation. However for the past one week feels as if the effect has decreased compared to before elias in terms of bloating. Still having at least one BM daily which is soft and without straining. Labs and US also reviewed. Liver with steatosis which in the absence of significant etOH use is likely from MAFLD. Most recent LFTs normal from last month. Pt also brings up heartburn that has become more frequent lately. Prev used to be triggered by certain foods only and easily manageable with OTC antacids. Now notices it more than 2-3 times a week and last 12-14 hours despite taking multiple doses of tums or mylanta. [facility] Medical History Depression Eczema Memory loss Generalized headaches Sludge in gallbladder Intestinal obstruction Surgical abdomen Reflux esophagitis IBS (irritable bowel syndrome) Surgical History Hx of colonoscopy History of esophagogastroduodenoscopy (EGD) H/O resection of large bowel Family History Brother Cholangiocarcinoma Mother Diabetes High blood pressure Father Diabetes High blood pressure Sister Diabetes Fatty liver Social History Household Members: Children Housing: House Housing Other:: two family home Do you presently have visiting nurse or other home services: No Alcohol intake: current Alcohol intake frequency: a few times a month Alcohol type: wine and hard liquor Patient Tobacco Use Status: Former Tobacco user e-Cigarette/Vaping Use: Former Use Second Hand Smoke Exposure: Yes Substance Use Type: Marijuana service: No Current occupational status: employed 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 [employer] Cognitive needs: No Hearing needs: No Vision needs: No Review of Systems Const All systems reviewed & are unremarkable except as noted in HPI and below Physical Exam Vital Signs: Last Vital Signs Pulse 63 06/28/23 12:50 BP 113/73 06/28/23 12:50 BMI result Body Mass Index 25.2 Gen appear: NAD HEENT: nonicteric, no cervical lymphadenopathy Chest: CTA CVS: Regular S1/S2 Abd: soft, nontender, nondistended, bowel sounds + Ext: no peripheral edema Neuro: A/Ox3, noted to move all extremities spontaneously Psych: interacting appropriately Assessment & Plan Assessment & Plan (1) IBS (irritable bowel syndrome): Code(s): K58.9 - Irritable bowel syndrome without diarrhea (2) Abdominal pain: Code(s): R10.9 - Unspecified abdominal pain (3) Change in bowel habit: Code(s): R19.4 - Change in bowel habit (4) Fatty liver: Code(s): K76.0 - Fatty (change of) liver, not elsewhere classified (5) Pyrosis: Code(s): R12 - Heartburn Plan Appears consistent with IBS-mixed type. Has had promising response to Amitiza. Will go up on dose after complete 4 week trial. In terms of fatty liver, mild based on overall assessment. For her heartburn, Ddx include GERD, esophagitis/gastritis, EoE. Will trial PPI. Plan: - Amitiza INCREASED to 16mcg BID - Cont fiber supplementation - For fatty liver, control of metabolic factors advised - Moderate intensity activity at least 150 mins/week. - Start Omeprazole 20mg once daily 30-40 mins before breakfast x 8 weeks. If relapses or inadequately controlled, can consider further testing including EGD - Avoid NSAIDs, fatty/acidic/spicy foods. Follow up in 4 months Medications: New omeprazole 20 mg PO DAILY 90 caps 0RF Changed From lubiprostone (Amitiza) 8 mcg PO BID 90 caps 0RF To lubiprostone (Amitiza) 16 mcg (2 x 8 mcg) PO BID 90 days 360 caps 1RF Coding Level of Care Code Est Pt Level 4 (66154) Diagnoses IBS (irritable bowel syndrome) K58.9 Abdominal pain R10.9 Change in bowel habit R19.4 Fatty liver K76.0 Pyrosis R12
== END 2023-06-28 13:42 | disposition home or self-care (01) ==
PROVIDERS: PCP Nurse Practitioner Family; Visit Provider Internal Medicine
DX: K58.9 Irritable bowel syndrome, unspecified (principal); R10.9 Unspecified abdominal pain; R19.4 Change in bowel habit; K76.0 Fatty (change of) liver, not elsewhere classified; R12 Heartburn
CPT/HCPCS: 99214

== ENCOUNTER → 2023-06-28 12:42 | Outpatient (BNVA) | payer BC, SELFPAY | PROVIDERS: PCP Nurse Practitioner Family; Visit Provider Internal Medicine ==

== ENCOUNTER 2023-07-07 15:38 | Outpatient (AMB) | payer BC, SELFPAY ==
--- NOTE | 2023-07-07 15:48 | A.OFFPC_ITS ---
Vital Signs 07/07/23 15:49 Height 5 ft 2 in Weight 139 lb 2 oz BMI 25.4 BP 108/70 Blood Pressure Location Rt brachial Position Sitting Respiration 13 Pulse 78 Pulse Source Pulse Oximeter Temp Source Temporal Artery Scan Pulse Oximetry (%) 99 Intake Visit Reasons: swollen lips for over 3 weeks Intake Note: Patient states that it was due to chapped lips and she kept applying chapstick and unscented vaseline. Patient states that she feels tiny small bumps that feel like sand paper and when she applies anything to them it feels like water is ifrah ng applied. Patient states that recently started getting itchy and is also burning. Dinkey Operator Slate Required: No Accompanied by: Self / Same As Patient Allergies penicillin V Allergy (Unknown, Verified 07/07/23 16:04) hives Penicillins [PENICILLINS] Allergy (Unknown, Verified 07/07/23 16:04) RASH Sulfa (Sulfonamide Antibiotics) Allergy (Unknown, Verified 07/07/23 16:04) Unknown Medication List - Last Reconciled 07/07/23 by Aaron Soliz CNP lubiprostone (Amitiza) 16 mcg (2 x 8 mcg) PO BID 90 days omeprazole 20 mg PO DAILY Tobacco use date assessed: 04/23/23 Dental Screening Dental Screen Date: 07/07/23 Did you have a dental visit in the last 12 months?: Yes Did you have a dental problem in the last 6 months where you did not have access to dental care?: No Was dental information given to patient?: Patient has dentist HPI HPI Comments History of Present Illness Details 37-year-old female presents with complai nts of swelling of her lips for the past 3 weeks. She reports associated burning, tingling, and itching of both lips. She denies using new lips or body products. She has tried multiple [id number] remedies without improvement. She denies introducing new foods into her diet. She notes that she started taking Amitiza for IBS almost a month ago. She denies fever, chills, body aches, fatigue, or weakness. [facility] Medical History Depression Eczema Memory loss Generalized headaches Sludge in gallbladder Intestinal obstruction Surgical abdomen Reflux esophagitis IBS (irritable bowel syndrome) Surgical History Hx of colonoscopy History of esophagogastroduodenoscopy (EGD) H/O resection of large bowel Family History Brother Cholangiocarcinoma Mother Diabetes High blood pressure Father Diabetes High blood pressure Sister Diabetes Fatty liver Social History Household Members: Children Housing: House Housing Other:: two family home Do you presently have visiting nurse or other home services: No Alcohol intake: current Alcohol intake frequency: a few times a month Alcohol type: wine and hard liquor Patient Tobacco Use Status: Former Tobacco user e-Cigarette/Vaping Use: Former Use Second Hand Smoke Exposure: Yes Substance Use Type: Marijuana service: No Current occupational status: employed 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 Sav Gregory, Susie Manzanares, Paolo Farfan and colleagues, with an educational gurdeep from [employer]. Review of Systems Const Details: Const Denies chills, Denies fatigue, Denies fever(s), Denies headache(s) and Denies weakness ENT Denies dizziness and Denies headache(s) Card Denies chest pain, Denies lightheadedness, Denies dyspnea and Denies other (Palpitations) Resp Denies cough, Denies dyspnea, Denies wheezing and Denies other ( shortness of breath) GI Denies abdominal pain, Denies melena, Denies hematochezia, Denies change in bowel habits, Denies dyspepsia and Denies nausea Denies hematuria and Denies dysuria Musc Denies abnormal gait, Denies myalgias, Denies arthralgias, Denies numbness and Denies tingling Skin/Breast Reports as per HPI Neuro Denies abnormal gait, Denies dizziness, Denies headache(s), Denies memory loss, Denies numbness, Denies Sensory deficit (Neuro), Denies tingling and Denies weakness Psych Denies anxiety, Denies depression, Denies memory loss Endo Denies cold intolerance, Denies fatigue, Denies heat intolerance, Denies polydipsia and Denies polyuria Aller/Immun Denies wheezing Physical exam (Primary Care) Vital Signs: Last Vital Signs Pulse 78 07/07/23 15:49 Resp 13 07/07/23 15:49 BP 108/70 07/07/23 15:49 Pulse Ox 99 07/07/23 15:49 BMI result Body Mass Index 25.4 Tobacco/Smoking Status: Tobacco use Status Tobacco use date assessed 04/23/23 07/07/23 16:01 Patient Tobacco Use Status Former Tobacco user 07/07/23 16:01 Tobacco use type 05/05/23 14:18 e-Cigarette/Vaping Use Former Use 07/07/23 16:01 Thrive Assessment: Date of Thrive Assessment Date Thrive assessed 04/23/23 07/07/23 16:01 Const Other: General: no acute distress and well developed Nutritional Appearance: well nourished Orientation/consciousness: patient oriented x3 HENMT Head: Yes normocephalic and Yes atraumatic Eyes General: appearance normal, both eyes and all related structures Pupils: Equal, round and reactive pupils present EOM: EOMs intact bilaterally Resp Effort & Inspection: normal respiratory effort Auscultation: clear to auscultation bilaterally Cardio Rate: regular rate Rhythm: regular rhythm Heart sounds: S1 normal heart sound present, S2 normal heart sound present, no gallops, no murmurs and no rubs GI Palpation (GI): No Abdominal aortic bruit present, Soft to palpation, nontender, No hepatosplenomegaly present and No Rebound tenderness present Auscultation: normal bowel sounds General: Yes no CVA tenderness Back/Spine/Pelvis Back: no CVA tenderness Cervical Spine: cervical ROM normal and No Cervical spine tenderness Thoracic/Lumbar Spine: thoraco-lumbar ROM normal, No pain with thoraco-lumbar ROM, No thoracic spinal tenderness and No lumbar spinal tenderness Extrem General: Yes normal to inspection, No edema and No calf tenderness Skin General: warm and dry. Normal skin color. Normal skin turgor Lesions: no lesions Rashes: Significant erythema and inflammation noted to the outside of both lips; mild edema noted. No drainage or discharge. No obvious signs of infection Trauma: no lacerations or abrasions Wounds: no wounds Nails: normal Neuro General: patient oriented x3, gait normal and no focal neuro deficit Cranial nerves: Yes Equal, round and reactive pupils present Cognition (Neuro): normal cognition Gait exam (Neuro): Normal gait present Sensory Exam: No Sensory deficit (Neuro) Psych Appearance: grossly normal Affect: normal affect Attitude: cooperative Thought process: Normal thought process present Assessment and Plan Assessment & Plan (1) Dermatitis of lip: Code(s): L30.9 - Dermatitis, unspecified Plan: Reports swelling of her lips for the past 3 weeks with associated burning, tingling, and itching of both lips. Significant erythema and inflammation noted to the outside of both lips; mild edema noted. No drainage or discharge. No obvious signs of infection. Likely due to an allergic response. Amitiza may also be a cause. Zyrtec and prednisone ordered. Take as prescribed. Advised to contact gastroenterology regarding Amitiza treatment initiation which coincides with her symptoms. Return with worsening or new symptoms. Verbalized understanding and agreed with treatment plan. I consulted with Dr. Nwesome for this visit. Medications: New cetirizine (Zyrtec) 10 mg PO DAILY 30 tabs 0RF 30 days prednisone 20 mg PO DAILY 5 tabs 0RF 5 days Coding Level of Care Code Est Pt Level 3 (75937) Diagnoses Dermatitis of lip L30.9
[2023-07-07 15:49] VITALS: BP 108/70; PULSE 78; RESP 13; O2SAT 99; BMI 25.4
== END 2023-07-07 16:28 | disposition home or self-care (01) ==
PROVIDERS: PCP Nurse Practitioner Family; Visit Provider Nurse Practitioner Family
DX: L30.9 Dermatitis, unspecified (principal)
CPT/HCPCS: 99214

== ENCOUNTER 2023-07-28 13:07 | Outpatient (AMB) | payer BC, SELFPAY ==
--- NOTE | 2023-07-28 13:08 | AM.OFFWIN_ITS ---
Intake Vital Signs 07/28/23 13:09 Height 5 ft 2 in Weight 139 lb 4 oz BMI 25.5 BP 116/77 Blood Pressure Location Lt brachial Position Sitting Pulse 60 Pulse Source Pulse Oximeter Pulse Oximetry (%) 97 Oxygen Delivery Method Room Air Intake Visit Reasons: follow up Intake Note: Patient is here to follow up on rash around her lips for months. Patient Tobacco Use Status: Former Tobacco user Allergies penicillin V Allergy (Unknown, Verified 07/28/23 13:20) hives Penicillins [PENICILLINS] Allergy (Unknown, Verified 07/28/23 13:20) RASH Sulfa (Sulfonamide Antibiotics) Allergy (Unknown, Verified 07/28/23 13:20) Unknown Medication List - Last Reconciled 07/28/23 by Kaleigh Robb, INSTALLATION AND SERVICE TECHNICIAN- cetirizine (Zyrtec) 10 mg PO DAILY 30 days lubiprostone (Amitiza) 16 mcg (2 x 8 mcg) PO BID 90 days omeprazole 20 mg PO DAILY HPI HPI Comments History of Present Illness Details HERE TODAY FOR ACUTE ON CHRONIC BLISTERING OF LIPS THAT HAS BEEN ONGOING FOR A FEW WEEKS - MONTHS. REPORTS IMPROVED W/ PREDNISONE AND VASELINE. HOWEVER FEELS LIKE ITS COMING BACK. DESCRIBES A SENSATION OF HAVING SMALL INTACT BLISTERS ON UPPER AND LOWER LIP. THEY BURN AND ARE EXTREMELY ITCHY. HER LIPS FEEL GENERALLY SWOLLEN AND SHE REPORTS THEY ALSO FEEL TIGHT. SHE HAS BEEN SCRATCHING THEM WHICH IS FURTHER IRRITATING. SHE HAS BOUGHT SEVERAL [id number] REMEDIES TO HELP TREAT WHICH INCLUDE AN ECZEMA LIP BALM, CARMEX, AND VASELINE. EXTENSIVE REVIEW OF HER HISTORY INCLUDING ANY ALLERGIC OR CONTACT CAUSES FOR HER SYMPTOMS. SHE DENIES. SHE DOES HAVE A HISTORY OF ABDOMINAL SURGERY DATING BACK TO [facility]. ALSO REPORTS THAT SHE HAS AN OVERALL POOR DIET. SHE DENIES ANY BURNING OR PAIN IN HER MOUTH, NO LESIONS INSIDE OF HER MOUTH. SHE DOES HAVE BOYFRIEND, HE IS W/O SIMILAR LESIONS. CONSTITUTIONAL SYMPTOMS REVIEW NEGATIVE. SHE REMAINS OFF AMITIZA. [facility] Medical History Depression Eczema Memory loss Generalized headaches Sludge in gallbladder Intestinal obstruction Surgical abdomen Reflux esophagitis IBS (irritable bowel syndrome) Surgical History Hx of colonoscopy History of esophagogastroduodenoscopy (EGD) H/O resection of large bowel Family History Brother Cholangiocarcinoma Mother Diabetes High blood pressure Father Diabetes High blood pressure Sister Diabetes Fatty liver Social History Household Members: Children Housing: House Housing Other:: two family home Do you presently have visiting nurse or other home services: No Alcohol intake: current Alcohol intake frequency: a few times a month Alcohol type: wine and hard liquor Patient Tobacco Use Status: Former Tobacco user e-Cigarette/Vaping Use: Former Use Second Hand Smoke Exposure: Yes Substance Use Type: Marijuana service: No Current occupational status: employed 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 LIPS ARE SMOOTH, DRY, MILDLY TAUGHT WITH TINY INTACT BLISTERS THAT ARE ONLY VISIBLE W/ MAGNIFICATION. CARIOUS TEETH Assessment & Plan Assessment & Plan (1) Dermatitis of lip: Code(s): L30.9 - Dermatitis, unspecified Orders: Orders IRON PROFILE Today L30.9 - Dermatitis, unspecified Zinc Today L30.9 - Dermatitis, unspecified Vitamin B12 and Folate Today L30.9 - Dermatitis, unspecified Hemoglobin A1c Today L30.9 - Dermatitis, unspecified Medications: New triamcinolone acetonide 0.1% use after food and/or drink and/or oral hygiene 1 appl dental TID PRN 5 grams 0RF mouth irritation prednisone 10 mg PO DAILY 7 days 7 tabs 0RF Patient Instructions: We discussed differential diagnoses which include eczema, or nutritional deficiencies related to her history of abdominal surgeries. At this time because she is going away we will treat the symptoms of the blistering and swelling of her lips with topical triamcinolone. She can use this 3 times a day as needed. Advised her to stop using anything else on her lips. I have also prescribed oral prednisone which she is only to use in the event of an outbreak during her trip away otherwise she should not take this medication. She should not use the topical triamcinolone while she is in the sun as this will further irritate the lips. She should follow-up with her primary care on the lab results. If normal I do recommend a referral to Dermatology. If abnormal I do recommend treating deficiency as well as follow-up with GI. Coding Level of Care Code Est Pt Level 4 (58803) Diagnoses Dermatitis of lip L30.9
[2023-07-28 13:09] VITALS: BP 116/77; PULSE 60; O2SAT 97; BMI 25.5
== END 2023-07-28 13:47 | disposition home or self-care (01) ==
PROVIDERS: PCP Nurse Practitioner Family; Visit Provider Nurse Practitioner Family
DX: L30.9 Dermatitis, unspecified (principal)
CPT/HCPCS: 99214

== ENCOUNTER 2023-07-29 06:00 | Outpatient (REF) | payer BC, SELFPAY ==
[2023-07-29 07:06] LABS: Estimated Average Glucose 94 mg/dL; Hemoglobin A1c % 4.9 % (<6.0)
[2023-07-29 07:16] LABS: Iron 99 mcg/dL (30-160); Percent Iron Saturation 24 % (15-50); Total Iron Binding Capacity 420 mcg/dL (228-428); Unsaturated Iron Binding 321 ug/dL
[2023-07-29 07:52] LABS: Folate 11.2 ng/mL (> or = 4.0); Vitamin B12 < 148 pg/mL (200-900)
[2023-08-01 22:24] LABS: Zinc 49 mcg/dL (60-130)
== END 2023-07-29 06:01 | disposition home or self-care (01) ==
LOC: HO.LAB 06:00
PROVIDERS: PCP Nurse Practitioner Family; Visit Provider Nurse Practitioner Family
DX: L30.9 Dermatitis, unspecified (principal); Z13.1 Encounter for screening for diabetes mellitus; Z98.890 Other specified postprocedural states
CPT/HCPCS: 36415; 82607; 82746; 83036; 83540; 84630

== ENCOUNTER 2023-11-03 14:39 | Outpatient (AMB) | payer BC, SELFPAY ==
--- NOTE | 2023-11-03 14:47 | A.OFFVIS_ITS ---
Intake Vital Signs 11/03/23 14:49 Height 5 ft 2 in Weight 139 lb 12.369 oz BMI 25.6 BP 118/73 Blood Pressure Location Lt brachial Position Sitting Pulse 73 Intake Visit Reasons: 4M follow up Intake Note: Patient here for 4m f/u irritable bowel syndrome. Last office visit on 06-28-23. Patient finished taking lubiprostone 16mcg. Had allergic rxn to Omeprazole/ swollen lips. Allergy list updated. Legal Secretary Receptionist Required: No Accompanied by: Velma Allergies penicillin V Allergy (Unknown, Verified 11/03/23 14:53) hives Penicillins [PENICILLINS] Allergy (Unknown, Verified 11/03/23 14:53) RASH Sulfa (Sulfonamide Antibiotics) Allergy (Unknown, Verified 11/03/23 14:53) Unknown lubiprostone [From Amitiza] Adverse Reaction (Severe, Verified 11/03/23 15:16) Blister HPI HPI Comments History of Present Illness Details This is a 37 year old female with hx of extensive gastrointestinal surgeries in infancy who is here for abdominal pain and changes in bowel habits. Pt reports hx of ?part of colon not working? ?? NEC, which necessitated removal and then followed by reconstruction. Reports having 11 surgeries in total in her first year of life. Has had hx of chronic abd discomfort with diarrhea which she has attributed to this. However for the past few months abd pain is more severe and happens more frequently. Associated now with ?relative? constipation i.e has 1 BM/day often with straining. Abd discomfort gets worse with this. Also noticing increase in bloating. Previous hx of smoking. No etOH use. 06/28/23: Was started on Amitiza 2 weeks ago. Noticed improvement in abd pain, bloating and constipation. However for the past one week feels as if the effect has decreased compared to before elias in terms of bloating. Still having at least one BM daily which is soft and without straining. Labs and US also reviewed. Liver with steatosis which in the absence of significant etOH use is likely from MAFLD. Most recent LFTs normal from last month. Pt also brings up heartburn that has become more frequent lately. Prev used to be triggered by certain foods only and easily manageable with OTC antacids. Now notices it more than 2-3 times a week and last 12-14 hours despite taking multiple doses of tums or mylanta. 11/03/23: Was unable to take Amitiza due to intolerance and sensitivity. Since then has not taken anything for IBS. Now BMs have fluctuated to watery BMs with lower abd cramping. Chronic heartburn resolved after completing omeprazole for 8 weeks. Now only has to take Gaviscon intermittently for breakthrough heartburn. [facility] Medical History Depression Eczema Memory loss Generalized headaches Sludge in gallbladder Intestinal obstruction Surgical abdomen Reflux esophagitis IBS (irritable bowel syndrome) Surgical History Hx of colonoscopy History of esophagogastroduodenoscopy (EGD) H/O resection of large bowel Family History Brother Cholangiocarcinoma Mother Diabetes High blood pressure Father Diabetes High blood pressure Sister Diabetes Fatty liver Social History Household Members: Children Housing: House Housing Other:: two family home Do you presently have visiting nurse or other home services: No Alcohol intake: current Alcohol intake frequency: a few times a month Alcohol type: wine and hard liquor Patient Tobacco Use Status: Former Tobacco user e-Cigarette/Vaping Use: Former Use Second Hand Smoke Exposure: Yes Substance Use Type: Marijuana service: No Current occupational status: employed 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 [employer] Cognitive needs: No Hearing needs: No Vision needs: No Review of Systems Const All systems reviewed & are unremarkable except as noted in HPI and below Physical Exam Vital Signs: Last Vital Signs Pulse 73 11/03/23 14:49 BP 118/73 11/03/23 14:49 BMI result Body Mass Index 25.6 Appears well and in no distress Speaking in full sentences Normal respiratory effort Alert oriented x3, normal gait Assessment & Plan Assessment & Plan (1) IBS (irritable bowel syndrome): Code(s): K58.9 - Irritable bowel syndrome without diarrhea (2) Abdominal pain: Code(s): R10.9 - Unspecified abdominal pain (3) Change in bowel habit: Code(s): R19.4 - Change in bowel habit (4) Fatty liver: Code(s): K76.0 - Fatty (change of) liver, not elsewhere classified Plan Appears consistent with IBS-mixed type. Bowel movements currently on the diarrhea side with lower abdominal cramping. Will prescribe rifaximin after getting a prior Auth. In the meantime, Bentyl prescribed. In terms of fatty liver, mild based on overall assessment. Again reviewed the importance of controlling her metabolic risk factors including weight. Plan: - dicyclomine 10 mg up to t.i.d. as needed for cramping - check if prior Auth needed for rifaximin - Cont fiber supplementation - For fatty liver, control of metabolic factors advised - Moderate intensity activity at least 150 mins/week. - Avoid NSAIDs, fatty/acidic/spicy foods. Follow up in 3 months Medications: New dicyclomine 10 mg PO TID PRN 90 caps 0RF abdominal pain Coding Level of Care Code Est Pt Level 4 (36110) Diagnoses IBS (irritable bowel syndrome) K58.9 Abdominal pain R10.9 Change in bowel habit R19.4 Fatty liver K76.0
[2023-11-03 14:49] VITALS: BP 118/73; PULSE 73; BMI 25.6
== END 2023-11-03 15:33 | disposition home or self-care (01) ==
PROVIDERS: PCP Nurse Practitioner Family; Visit Provider Internal Medicine
DX: K58.9 Irritable bowel syndrome, unspecified (principal); R10.9 Unspecified abdominal pain; R19.4 Change in bowel habit; K76.0 Fatty (change of) liver, not elsewhere classified
CPT/HCPCS: 99214

== ENCOUNTER → 2023-11-03 14:39 | Outpatient (BNVA) | payer BC, SELFPAY | PROVIDERS: PCP Nurse Practitioner Family; Visit Provider Internal Medicine ==

== ENCOUNTER 2024-12-29 12:59 | Outpatient (AMB) | payer BC, SELFPAY ==
--- NOTE | 2024-12-29 13:02 | A.OFFVIS_ITS ---
Vital Signs 12/29/24 13:07 Height 5 ft 2 in Weight 139 lb BMI 25.4 BP 109/71 Blood Pressure Location Lt brachial Position Sitting Pulse 80 Intake Visit Reasons: f/u r/s from Intake Note: Bharti presents in the office as a follow up - this appt has been rescheduled a couple times. CC: She states that she is having a hard time eating. Watery diarrhea - straight liquid. Pains in the stomach that goes from the flank side to the umbilical region. She states that the dicyclomine makes her feels a little out of it but it helps her symptoms - the rixfaximin she cannot take in the day. States that she has a migraine that has been going on for 2 weeks - she has a lot of stress with her daughter the past week. She states the other day she had hot flashes, nausea and she felt clamy. She states it lasted for 45 minutes but there was no abdominal pains that she recalls but the pains in the stomach come out of nowhere. Media Center Assistant Required: No Allergies penicillin V Allergy (Unknown, Verified 05/30/25 14:36) hives Penicillins (PENICILLINS) Allergy (Unknown, Verified 05/30/25 14:36) RASH Sulfa (Sulfonamide Antibiotics) Allergy (Unknown, Verified 05/30/25 14:36) Unknown lubiprostone (From Amitiza) Adverse Reaction (Severe, Verified 05/30/25 14:36) Blister HPI Comments Details: This is a 37 year old female with hx of extensive gastrointestinal surgeries in infancy who is here for abdominal pain and changes in bowel habits. Pt reports hx of ?part of colon not working? ?? NEC, which necessitated removal and then followed by reconstruction. Reports having 11 surgeries in total in her first year of life. Has had hx of chronic abd discomfort with diarrhea which she has attributed to this. However for the past few months abd pain is more severe and happens more frequently. Associated now with ?relative? constipation i.e has 1 BM/day often with straining. Abd discomfort gets worse with this. Also noticing increase in bloating. Previous hx of smoking. No etOH use. 06/28/23: Was started on Amitiza 2 weeks ago. Noticed improvement in abd pain, bloating and constipation. However for the past one week feels as if the effect has decreased compared to before elias in terms of bloating. Still having at least one BM daily which is soft and without straining. Labs and US also reviewed. Liver with steatosis which in the absence of significant etOH use is likely from MAFLD. Most recent LFTs normal from last month. Pt also brings up heartburn that has become more frequent lately. Prev used to be triggered by certain foods only and easily manageable with OTC antacids. Now notices it more than 2-3 times a week and last 12-14 hours despite taking multiple doses of tums or mylanta. 11/03/23: Was unable to take Amitiza due to intolerance and sensitivity. Since then has not taken anything for IBS. Now BMs have fluctuated to watery BMs with lower abd cramping. Chronic heartburn resolved after completing omeprazole for 8 weeks. Now only has to take Gaviscon intermittently for breakthrough heartburn. 12/29/24: Lost to follow up. 11/29 had severe pelvic pain. Was seen by container finishing inspector had recommended GI w/up. Reports apart from lower abd pain with diarrhea 5-6 BMs per day which are watery. No blood. Night time sx. Urgency +. She had also called our office for the same and given muscle relaxant which did help with the lower abd pain. This did help but made her drowsy. So does the dicyclomine. Now haseeb issue is bloating and diarrhea. No N/V. Heartburn + Not sexually active. Of note- pt also with migraine L sided with blurring. [facility] Medical History Depression Eczema Memory loss Generalized headaches Sludge in gallbladder Intestinal obstruction Surgical abdomen Reflux esophagitis IBS (irritable bowel syndrome) Surgical History Hx of colonoscopy History of esophagogastroduodenoscopy (EGD) H/O resection of large bowel Family History Brother Cholangiocarcinoma Mother Diabetes High blood pressure Father Diabetes High blood pressure Sister Diabetes Fatty liver Social History Household Members: Children Housing: House Housing Other:: two family home Do you presently have visiting nurse or other home services: No Alcohol intake: current Alcohol intake frequency: a few times a month Alcohol type: wine and hard liquor Patient Tobacco Use Status: Former Tobacco user e-Cigarette/Vaping Use: Former Use Second Hand Smoke Exposure: Yes Substance Use Type: Marijuana service: No Current occupational status: employed 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 [employer] Cognitive needs: No Hearing needs: No Vision needs: No Review of Systems Const All systems reviewed & are unremarkable except as noted in HPI and below Physical Exam Vital Signs: Last Vital Signs Pulse 80 12/29/24 13:07 BP 109/71 12/29/24 13:07 BMI result Body Mass Index 25.4 No apparent distress Nonicteric Abdomen soft, nondistended Alert and oriented x3, normal gait Assessment & Plan Assessment & Plan (1) IBS (irritable bowel syndrome): Code(s): K58.9 - Irritable bowel syndrome, unspecified Category: Medical (2) Abdominal pain: Code(s): R10.9 - Unspecified abdominal pain Category: Medical (3) Change in bowel habit: Code(s): R19.4 - Change in bowel habit Category: Medical (4) Fatty liver: Code(s): K76.0 - Fatty (change of) liver, not elsewhere classified Category: Medical Plan Appears consistent with IBS-mixed type. Main issue is diarrhea, affecting qual of life. Global sx manageable. Reassured that can have a relapsing remitting course with IBS however if BMs with minimal improvement even with loperamide, can pursue repeat endoscopic w/up to r/o seroneg celiac, microscopic colitis etc. Plan: - Start imodium nilesh at night and repeat next AM if still has more than 2 loose stools. - Low FODMAP diet - Cont fiber supplementation - For fatty liver, control of metabolic factors advised - Moderate intensity activity at least 150 mins/week. - Avoid NSAIDs, fatty/acidic/spicy foods. Follow up in 2 months Medications: New loperamide (Imodium A-D) Take one tab at night, repeat next morning if > 2 loose stools 2 mg PO QID PRN 180 tabs 1RF loose stool Coding Level of Care Code Est Pt Level 3 (00147) Diagnoses IBS (irritable bowel syndrome) K58.9 Abdominal pain R10.9 Change in bowel habit R19.4 Fatty liver K76.0
[2024-12-29 13:07] VITALS: BP 109/71; PULSE 80; BMI 25.4
--- OUTSIDE RECORDS SUMMARY | 2024-12-29 14:50 | XMS_ITS ---
Author Name [facility] Organization Unknown Encounters Encounter Type Encounter Reason Primary Diagnosis Location Date Ambulatory [facility]. ([facility]) 08/18/2022
--- OUTSIDE RECORDS SUMMARY | 2024-12-29 14:50 | XMS_ITS | Clinical Summary ---
Author Organization [facility] Address [address] [place] [address] Phone Care Team Providers Care Spa Coordinator Name Role Phone Unavailable Primary Care Provider Unavailabl e Immunizations Immunization Administration Dates Next Due DTP 09/26/1997, 7,05/27/1997,1990,01/24/1990 Hep B, ped/adol 04/12/2001,04/16/1999,12/18/1997 Hib (PRP-T) 01/24/1990 IPV 07/27/1997, 7,01/24/1991,1989 MMR 12/18/1997,11/24/1997 Td (adult) (Tenivac), 5 Lf t etanus toxoid, PF, adsorbed 04/16/1999 Social History Tobacco Use Types Packs/Day Years Used Date Smoking Tobacco: Never Assessed Comments Unknown Sex and Gender Information Value Date Recorded Sex Assigned at Not on file Legal Sex Female 4:10 PM EDT Gender Identity Not on file Sexual Orientation Not on file Plan of Treatment Health Maintenance Due Date Last Done Comments Varicella Vaccines (1 of 2 - 13+ 2-dose series) 1999 DTaP,Tdap,and Td Vaccines (7 - Tdap) 04/16/2009 04/16/1999, 09/26/1997, 07/27/1997, Additional history exists Influenza Vaccines (#1) 2024 COVID-19 Vaccine (2023- season) 2024 HIB Vaccines Completed 01/24/1990 IPV Vaccines Completed 07/27/1997, 08/09/1996, 01/24/1991, Additional history exists MMR Vaccines Completed 12/18/1997, 11/24/1997 Hepatitis B Vaccines Completed 04/12/2001, 04/16/1999, 12/18/1997 HPV Vaccines Aged Out No longer eligi ble based on patient's age to complete this topic Hepatitis A Vaccines Aged Out No long er eligible based on patient's age to complete this topic Men B Vaccine Aged Out No longer elig ible based on patient's age to complete this topic Meningococcal Vaccine Aged Out No urszula rose eligible based on patient's age to complete this topic Pneumococcal Vaccine Aged Out No long er eligible based on patient's age to complete this topic
--- OUTSIDE RECORDS SUMMARY | 2024-12-29 14:50 | XMS_ITS | Patient Health Record ---
Author Organization [facility] enter Address [address] [place] [id number] Support Name Relationship Address Phone [address]harti [address] Guarantor Unknown Reason For Referral No Information Immunizations Vaccine Route Administration Date Status Comme nts COVID-19 Vaccine(Moderna) 2nd dose IM Intramuscular 11/15/2020 Administered Plan Of Treatment No Information Insurance Providers Payer Name Payer Address Payer Phone Subscriber Number Group Number Insured Name Patient Relationship to Insured Coverage Start Date Coverage End Date [facility] Health[employer] Plan [address] [address] [place] [id number] Self - patient is the insured
--- OUTSIDE RECORDS SUMMARY | 2024-12-29 14:50 | XMS_ITS | Encounter Summary ---
Author Organization [facility] Address [address] [place] [address] Phone Care Team Providers Care Corn Cooker Name Role Phone Jenny Tao NP Primary Care Provider Sarita alvarez Encounter Details Date Type Department Care Team (Late st Contact Info) Description 05/13/2017 Conversion Encounter [facility] - [address] [address] Social History Tobacco Use Types Packs/Day Years Used Date Smoking Tobacco: Never Assessed Comments Unknown Sex and Gender Information Value Date Recorded Sex Assigned at Not on file Legal Sex Female 4:10 PM EDT Gender Identity Not on file Sexual Orientation Not on file documented as of this encounter Plan of Treatment Not on file documented as of this encounter Visit Diagnoses Not on filedocumented in this encounter Care Teams Corn Cooker Relationship Specialty Start Date End Date Jenny Tao NP PCP - General 05/07/17 01/12/23 documented as of this encounter
--- OUTSIDE RECORDS SUMMARY | 2024-12-29 14:50 | XMS_ITS | Data Portability ---
Author Organization JAMAL [facility], [address] Address [address] [place] [address] Assessment No assessment recorded. Plan of Treatment Reminders Order Date Submit Date Provider Last Modified By Organization Details Last Modified Time Details Appointments None recorded. Lab rapid SARS CoV 2 Ag, QL IA, respiratory specimen 2021 022 [email or web address] 1 _pancho conklin, [address] [place] [address], [id number], 2 19:21:32 rapid strep group A, throat 2021 022 [email or web address] 1 _pancho conklin, [address] [place] [address], [id number], 19:21:32 Referral None recorded. Procedures None recorded. Surgeries None recorded. Imaging None recorded. Medication Orders ofloxacin 0.3 % eye drops 2022 023 [email or web address] [id number], [address] [place], [address], 3 10:28:59 fluticasone propionate 50 mcg/actuati on nasal spray,suspe nsion 2021 022 LYNDA [id number], [address] [place], [address], 2 19:21:34 doxycycline hyclate 100 mg capsule 2021 022 [email or web address] [id number], [address] [facility] [place], [address], 3 09:09:53 Patient TargetsNo targets recorded. Patient Instructions Encounter Date Encounter Id Patient Instructions Last Modified By Organization Details Last Modified Time 03/16/2023 [id number] blepharitis: car e instructions [email or web address] Not available 03/16/2023 09:46:33 Reason for Referral None Reported. Results Created Date Observation Date Name Description Value Unit Range Abnormal Flag Note LastModifiedBy Organization Detail LastModifiedTime 09/07/20 22 09/07/2022 rapid SARS CoV 2 Ag, QL IA, respi rator y speci men Unknown Analyte Normal =Negat matt Not Available 2099delvin bolden [address] [place], [address], 09/07/2022 18:41:04 09/07/20 22 09/07/2022 rapid SARS CoV 2 Ag, QL IA, respi rator y speci men Unknown Analyte negati ve Not Available [address] [place], [address], 09/07/2022 18:41:04 09/07/20 22 09/07/2022 rapid strep group A, throa t Unknown Analyte Normal = Negati ve Not Available [address], [address], 09/07/2022 18:44:29 09/07/20 22 09/07/2022 rapid strep group A, throa t Unknown Analyte negati ve Not Available [address] [place] [address], [address], 09/07/2022 18:44:29 Result Notes None recorded. Problems Name Problem SNOMED Code Status Onset Date Resolution Date Notes Provider Name and Address Organization Details Recorded Time Palpitations 95653922 Active 2022 JAMAL Tapia - [facility] 3 09:10:11 Disorder of intestine 87724972 Active 2021 Jaci lopez [place] - [facility] 2 18:43:08 Problem Notes None recorded. Procedures Surgical History Date Name Laterality Status Provider Name and Address Organization Details Recorded Time 3 OC-UDS Send Out Template NON DOT completed ARA LAROSE [place] - [facility] 10/06/2022 12:19:38 Imaging Results None recorded. Procedure Notes None recorded. Medical Equipment None Reported. Allergies Allergen ID Allergen Name Allergen Category Reaction Reaction Severity Criticality Documentation Date Start Date Code Code System Note Provider Name and Address Organization Details Recorded Time 76513 Product containin g penicilli n (product) medicatio n Not available Not available Not available 09/07/2022 58010 8001 SNOMED Jaci lopez [place] - [employer] [facility] 2 18:42:02 Medications Name Sig Start Date Stop Date Status Note LastModified by Organization Details LastModified Time doxycycline hyclate 100 mg capsule TAKE 1 CAPSULE BY MOUTH TWICE A DAY WITH MEALS FOR 7 DAYS 03/16 completed Not Available Not Available Not Available ofloxacin 0.3 % eye drops Instill 1 drop 3 times a day by ophthalmi c route for 7 days. 2022 active Not Available Not Available Not Avai lable sulfamethox azole 800 mg-trimetho prim 160 mg tablet TAKE 1 TABLET BY MOUTH TWICE A DAY X10 DAYS 09/07 completed Not Available Not Available Not Available norethindro ne acetate 5 mg tablet TAKE 1 TABLET BY MOUTH THREE TIMES DAILY FOR 10 DAYS 09/07 completed Not Available Not Available Not Available fluticasone propionate 50 mcg/actuati on nasal spray,suspe nsion SPRAY 1 SPRAY BY INTRANASA L ROUTE TWICE A DAY active Not Available Not Available No t Available Vitals Date Recorded Body height Body mass index (BMI) Body weight Body temperature Respiratory rate Heart rate Pain severity - 0-10 verbal numeric rating [Score] - Reported Oxygen saturation Oxygen saturation in Arterial blood by Pulse oximetry Systolic blood pressure Diastolic blood pressure Provider Name and Address Organization Details Last Updated DateTime 2 154.94 cm 25.1 kg/m2 45582.7 9 g 98.5 [degF] 18 /min 82 /min 3 97 % 97 % 114 mm[Hg] 82 mm[Hg] Jaci Goldstein [facility] 2 18:45:34 Date Recorded Body height Body mass index (BMI) Body weight Pain severity - 0-10 verbal numeric rating [Score] - Reported Respiratory rate Oxygen saturation Oxygen saturation in Arterial blood by Pulse oximetry Heart rate Body temperature Systolic blood pressure Diastolic blood pressure Provider Name and Address Organization Details Last Updated DateTime 3 154.94 cm 25.1 kg/m2 86888.7 9 g 0 20 /min 98 % 98 % 68 /min 97.9 [degF] 114 mm[Hg] 83 mm[Hg] Teena Mcdonald [facility] 3 09:11:35 Social History Question Answer Notes LastModified by Organizat ion Details LastModified Time Tobacco Smoking Status Never Smoker Jaci Mccarthyrosenda lopez [facility] 09/07/2022 18:43:53 What Is Your Level Of Alcohol Consumption? Occasional Information not available 09/07/2022 Have You Had Direct Contact, Or Contact During Intimacy, With Monkeypox Rash, Scabs, Or Body Fluids From A Person With Monkeypox? No Information not available 09/07/2022 Do You Use Any Illicit Or Recreational Drugs? No Information not available 09/07/2022 Have You Recently Traveled Abroad? No Information not available 09/07/2022 Do You Or Have You Ever Used Any Other Forms Of Tobacco Or Nicotine? No [email or web address] Information not available 03/16/2023 Sex: Unknown Functional Status None recorded. Mental Status None recorded. Family History Relationship Description Onset Age of this Age Resolved Age Notes LastModified by Organization Details LastModified Time Mother Diabetes mellitus Not available 2021 18:43:31 Father Hypertensive disorder Not available 2021 18:43:38 Medical History No medical history recorded. Gynecological History Statement/Question Response Date of LMP 02/15/2023 Is there any chance of ? No LMP Approximate Obstetrics History GPAL:G 0 P 0 0 0 0 Immunizations Vaccine Type Date Status Note Provider Nam e and Address Organization Details Recorded Time Td (adult), 5 Lf tetanus toxoid, preservative free, adsorbed 2 completed JAMAL Clark - [facility] 09/07/2022 18:41:54 Past Encounters Encounter ID Performer Location Encounter Start Date Encounter Closed Date Diagnosis/Indication Diagnosis SNOMED-CT Code Diagnosis ICD10 Code Diagnosis Note [id number] [address] [facility] [place] [address] 11/02/2018 14:46:21 11/02/2018 15:54:09 [id number] [address] [facility] [place] [address] 01/06/2021 10:23:49 01/06/2021 12:16:05 [id number] [address] [place] [address] [place] [address] 01/13/2021 10:33:31 01/13/2021 11:48:27 [id number] ANTWAN VELEZ MD [address] [facility] [place] [address] 09/07/2022 18:24:26 09/07/2022 19:24:09 Cough 14790635 R05.9 Acute sinusitis 58575440 J01.90 If your symptoms worsen or persist you should be re-evaluat ed. Drink plenty of fluids If you are having thick mucus, you can useMUCINEX PLAINto help with your symptoms. Mucinex helps to thin mucus and works best when you drink plenty of water/flui ds throughout the whole day. If you are having thick mucus and a cough, you can useMUCINEX -DMto help with your symptoms. Mucinex helps to thin mucus and the DM is the cough suppressan t. This will work best when you drink plenty of water/flui ds throughout the whole day. If you just have coughand not thick mucus, you can useDELSYMt o help with your symptoms. Some people feel DELSYM makes them feel a little tired so you may want to use cough drops during the day and add the DELSYM in at night. You can take acetaminop hen (generic Tylenol) as directed on the bottle. Be careful about how much you take in one day. Taking more than the recommende d amount can cause liver problems. Return to [facility] or see your primary care physician if your symptoms fail to improve in 5-7 days. You should follow up sooner if your symptoms worsen significan tly or if you develop new symptoms that concern you. Doxycyclin e can cause sun sensitivit y. Be cautious about sun exposure while taking the medication . Do not take any vitamins or multivitam ins while on the doxycyclin e. If your symptoms are getting worse you should call 911 or go to the emergency department . [id number] Yogi Gregory MD [address] [address] [place] [address] 10/06/2022 11:10:04 10/06/2022 13:49:04 History and physical examination, pre-employment [id number] Z02.1 [id number] Yogi Gregory MD [address] [address] [place] [address] 03/16/2023 08:19:46 03/16/2023 09:52:03 Blepharitis of left eyelid 0985841504 69925 H01.006 Please follow up with PCP or Urgent Care in 3-5 days if no improvemen t or if any new symptoms occur that are concerning . Health Concerns Section Related Observation LastModified by Organization Detai ls LastModified Time None Recorded Concern Status LastModified by Organization Details LastModified Time None Recorded Advance Directives Directive None Recorded Payers Encounter Date Sequence Insurance Name Policy Number Policy Xavier Covered Member ID Xavier Member ID Guarantor Name 01/13/2021 1 [facility] ([facility]) [id number] [address] [id number] [address] 09/07/2022 1 [facility] [employer] (O) [id number] [address] [id number] [address] 10/06/[address] [id number] [place] [id number] [address] 03/16/2023 1 [place]: ANITA (PPO) [id number] [address] [id number] [address] Notes Date Note Type Note Provider Name and Address Organization Details Recorded Time 09/07/2022 text/html COVID-19 SymptomsReported bypatient.COVID-19 Signs and Symptomscough worsening; headache same; sore throat same Quality:dry cough Severity:moderate (with coughing) Duration:symptoms lasting 3 days Associated Symptoms:no wheezing; no nausea; no vomiting;ear pain or pressure;headache started 3d ago with tickle in throat and hoarse voice. Then with some congestion and started yest with acute sinus pressure/pain, cough, hot/cold, sore throat and today also with sinus SCALES ANTWAN VELEZ MD [address] [place], [address], Gal[place] - [facility] 09/07/2022 19:35:45 03/16/2023 text/html Eye problemsRepo rted bypatient.[facility] Symptoms:no sensitivity to light; no discharge of pus from the eyes; no pain in the eyes; no blurred vision; redness Severity:mild Onset/Timin hours agoNotes:Has improved since this morning, feels slight pain medial aspecxt left upper lid Yogi Gregory MD [address] [place], [address], [employer] [facility] 03/17/2023 10:31:07 OBGyn Episode No OBEpisode recorded.
== END 2024-12-29 14:01 | disposition home or self-care (01) ==
LOC: HO.HGI 12:59
PROVIDERS: PCP Nurse Practitioner Family; Visit Provider Internal Medicine
DX: K58.9 Irritable bowel syndrome, unspecified (principal); R10.9 Unspecified abdominal pain; R19.4 Change in bowel habit; K76.0 Fatty (change of) liver, not elsewhere classified
CPT/HCPCS: 99499

== ENCOUNTER 2025-05-30 14:00 | Outpatient (AMB) | payer BC, SELFPAY ==
--- NOTE | 2025-05-30 14:02 | A.OFFVIS_ITS ---
Vital Signs 05/30/25 14:31 Height 5 ft 2 in Weight 134 lb 7.712 oz BMI 24.6 BP 108/71 Blood Pressure Location Lt brachial Position Sitting Pulse 75 Intake Visit Reasons: f/u abdominal pains Intake Note: Bharti presents to in office follow up of abdomina pain. CC: Patient c/o abdominal pain, bloating, and diarrhea. Per patient she has been taking dicyclomine 10 mg but it only gives her relief for about 2-3 hours. PT also reports lack of appetite and states that everything she eats gives her pain. She states that pain has been worst for last month. 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 Pt reports hx of ?part of colon not working? ?? NEC, which necessitated removal and then followed by reconstruction. Reports having 11 surgeries in total in her first year of life. Has had hx of chronic abd discomfort with diarrhea which she has attributed to this. However for the past few months abd pain is more severe and happens more frequently. Associated now with ?relative? constipation i.e has 1 BM/day often with straining. Abd discomfort gets worse with this. Also noticing increase in bloating. Previous hx of smoking. No etOH use. 06/28/23: Was started on Amitiza 2 weeks ago. Noticed improvement in abd pain, bloating and constipation. However for the past one week feels as if the effect has decreased compared to before elias in terms of bloating. Still having at least one BM daily which is soft and without straining. Labs and US also reviewed. Liver with steatosis which in the absence of significant etOH use is likely from MAFLD. Most recent LFTs normal from last month. Pt also brings up heartburn that has become more frequent lately. Prev used to be triggered by certain foods only and easily manageable with OTC antacids. Now notices it more than 2-3 times a week and last 12-14 hours despite taking multiple doses of tums or mylanta. 11/03/23: Was unable to take Amitiza due to intolerance and sensitivity. Since then has not taken anything for IBS. Now BMs have fluctuated to watery BMs with lower abd cramping. Chronic heartburn resolved after completing omeprazole for 8 weeks. Now only has to take Gaviscon intermittently for breakthrough heartburn. 12/29/24: Lost to follow up. 11/29 had severe pelvic pain. 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 Reports apart from lower abd pain with diarrhea 5-6 BMs per day which are watery. No blood. Night time sx. Urgency +. She had also called our office for the same and given muscle relaxant which did help with the lower abd pain. This did help but made her drowsy. So does the dicyclomine. Now haseeb issue is bloating and diarrhea. No N/V. Heartburn + Not sexually active. Of note- pt also with migraine L sided with blurring. 05/30/25: Here for follow up. Continues to have pain and bloating. Elias in lower abd. Takes dicyclomine BID. Uses heating pad. Also has post prandial diarrhea. 8-9 BMs per day. No unintentional weight loss or blood. Last endoscopic work up around 5 years ago. [facility] Medical History Depression Eczema Memory loss Generalized headaches Sludge in gallbladder Intestinal obstruction Surgical abdomen Reflux esophagitis IBS (irritable bowel syndrome) Surgical History Hx of colonoscopy History of esophagogastroduodenoscopy (EGD) H/O resection of large bowel Family History Brother Cholangiocarcinoma Mother Diabetes High blood pressure Father Diabetes High blood pressure Sister Diabetes Fatty liver Social History Household Members: Children Housing: House Housing Other:: two family home Do you presently have visiting nurse or other home services: No Alcohol intake: current Alcohol intake frequency: a few times a month Alcohol type: wine and hard liquor Patient Tobacco Use Status: Former Tobacco user e-Cigarette/Vaping Use: Former Use Second Hand Smoke Exposure: Yes Substance Use Type: Marijuana service: No Current occupational status: employed Current occupation: [employer] Cognitive needs: No Hearing needs: No Vision needs: No Review of Systems Const All systems reviewed & are unremarkable except as noted in HPI and below Physical Exam Exam Exam: No apparent distress Nonicteric Abdomen soft, nondistended Alert and oriented x3, normal gait Vital Signs: Last Vital Signs Pulse 75 05/30/25 14:31 BP 108/71 05/30/25 14:31 BMI result Body Mass Index 24.6 Assessment & Plan Assessment & Plan (1) IBS (irritable bowel syndrome): Code(s): K58.9 - Irritable bowel syndrome, unspecified Category: Medical (2) Abdominal pain: Code(s): R10.9 - Unspecified abdominal pain Category: Medical (3) Change in bowel habit: Code(s): R19.4 - Change in bowel habit Category: Medical (4) Fatty liver: Code(s): K76.0 - Fatty (change of) liver, not elsewhere classified Category: Medical Plan Appears consistent with IBS-mixed type. Bowel movements currently on the diarrhea side with lower abdominal cramping. Has prev tried rifaximin in 2023 - can not remember if helped. GIven consdierable bloating and discomfort, will trial cipro for possible SIBO. We will also set her up for bidirectional endoscopy for assessment of chronic diarrhea. Plan: - Cont dicyclomine 10 mg up to t.i.d. as needed for cramping - Cipro 500 BID x 10 days - Add probiotis - Cont fiber supplementation - EGD/colo to be booked - PEG prep Rxed and instructions reviewed Follow up after scopes Medications: New peg 3350-electrolytes 236-22.74-6.74 -5.86 gram (Golytely) as per split prep instructions, until fecal effluent is clear 240 mL PO Q10M 4,000 mL 0RF colonoscopy ciprofloxacin HCl (Cipro) 500 mg PO BID 20 tabs 0RF 10 days Refilled cyclobenzaprine Can cause drowsiness 5 mg PO BID PRN 14 tabs 0RF muscle spasm 7 days Coding Level of Care Code Est Pt Level 4 (50850) Diagnoses IBS (irritable bowel syndrome) K58.9 Abdominal pain R10.9 Change in bowel habit R19.4 Fatty liver K76.0
[2025-05-30 14:31] VITALS: BP 108/71; PULSE 75; BMI 24.6
--- OUTSIDE RECORDS SUMMARY | 2025-05-30 16:17 | XMS_ITS ---
Author Name [facility] Organization Unknown Encounters Encounter Type Encounter Reason Primary Diagnosis Location Date Ambulatory [facility]. ([facility]) 08/18/2022
--- OUTSIDE RECORDS SUMMARY | 2025-05-30 16:17 | XMS_ITS | Patient Health Record ---
Author Organization [facility] Address [address] [place] [address] Support Name Relationship Address Phone [address] Guarantor Unknown Reason For Referral No Information Immunizations Vaccine Route Administration Date Status Comme nts COVID-19 Vaccine(Moderna) 2nd dose IM Intramuscular 11/15/2020 Administered Plan Of Treatment No Information Insurance Providers Payer Name Payer Address Payer Phone Subscriber Number Group Number Insured Name Patient Relationship to Insured Coverage Start Date Coverage End Date [facility] [employer] Plan [address] [address] [place] [id number] Self - patient is the insured
--- OUTSIDE RECORDS SUMMARY | 2025-05-30 16:17 | XMS_ITS | Clinical Summary ---
Author Organization [employer] [facility] Address [address] [facility] [address] [place] [phone] Phone Care Team Providers Care Money Market Clerk Name Role Phone Cyndi Cutler MD Primary Care Provider [phone] Allergies Active Allergy Reactions Criticality Noted Date Comments Lactose Diarrhea,GI Upset 07/17/2021 Penicillins Hives 03/25/2021 Medications No known medications Active Problems Problem Noted Date Diagnosed Date Dysmenorrhea 07/17/2021 Assessment & Plan (07/17/2021 12:17 PM EDT): First period after LEEP was very painful for 1 day; we discussed that there is a possibility of scarring/narrowing of os that may have caused this; however on exam the cervix does not appear tight or scarred. Second LEEP done, pt to report if periods continue with severe dysmenorrhea Dysplasia of cervix, high grade ELSA 2 06/16/2021 Overview (07/17/2021): 04/2021 colpo, adequate, 6 oclock biopsy with CIN2 05/2021 LEEP CIN2-3 with +focal endocervical margin and ECC 06/2021 repeat LEEP/ECC Left ovarian cyst 06/16/2021 Overview (07/17/2021): 2cm, stable, possibly an endometrioma Assessment & Plan (07/17/2021 12:16 PM EDT): 2cm ovarian cyst seen at last visit; repeat US today shows a similar cyst with slightly smaller measurements in each dimension. Pt reassured Assessment & Plan (06/16/2021 9:25 AM EDT): Seen on US 04/28/2021 Report recommended repeat US to assess cyst Order placed Atypical squamous cell rosado es of undetermined significance (ASCUS) on cervical cytology with positive high risk human papilloma virus (HPV) 04/07/2021 Overview (06/16/2021): 03/2021 ASCUS/pos HPV 16 Immunizations Immunization Administration Dates Next Due COVID-19 (Pre-07/19) Moderna Vaccine, mRNA, PF 11/15/2020 DTP 09/26/1997, 7,05/27/1997,1990,01/24/1990 Hepatitis B 04/12/2001,04/16/1999,12/18/1997 Hib,PRP-T 01/24/1990 IPV 07/27/1997, 7,01/24/1991,1989 MMR 12/18/1997,11/24/1997 Td (adult) 5 Lf Tetanus Toxo id, PF, Adsorbed 05/24/2012,04/16/1999 Family History Medical History Relation Comments Cancer Brother bile duct cancer Diabetes Father Breast cancer Maternal Aunt Lung cancer Maternal Grandmother smoker Diabetes Mother Hypertension Mother Diabetes Sister Hypertension Sister Relation Status Comments Brother Father Maternal Aunt Maternal Grandmother Mother Sister Social History Tobacco Use Types Packs/Day Years Used Date Smoking Tobacco: Every Day Cigarettes Smokeless Tobacco: Never Comments:2 cigs per day Alcohol Use Standard Drinks/Week Comments Yes 0 (1 standard drink = 0.6 oz pur e alcohol) few drinks per week Education Answer Date Recorded Are you interested in more education? Not on charan e 01/23/2023 Are you concerned about learning? Not on file 01/23/2023 No 01/23/2023 No 01/23/2023 Digital Access Answer Date Recorded No 02/20/2023 No 02/20/2023 Reliable internet access at home? Not on file 02/20/2023 Device with a working camera? Not on file Comments No Sex and Gender Information Value Date Recorded Sex Assigned at Female 02/05/2022 5:49 PM EDT Legal Sex Female 12:07 PM EDT Gender Identity Female 02/05/2022 5:49 PM EDT Sexual Orientation Straight 02/05/2022 5: 49 PM EDT Last Filed Vital Signs Vital Sign Reading Time Taken Comments Blood Pressure 112/78 11/29/2024 3:16 PM EST Pulse 62 02/05/2022 4:03 PM EDT Temperature 36.4 C (97.6 F) 02/05/2022 4:03 PM EDT Respiratory Rate 18 02/05/2022 4:03 PM EDT Oxygen Saturation 99% 02/05/2022 4:03 PM EDT Inhaled Oxygen Concentration - - Weight 55.3 kg (122 lb) 02/05/2022 4:03 PM EDT Height 154.9 cm (5' 1 ) 02/05/2022 4:03 PM EDT Body Mass Index 23.05 02/05/2022 4:03 PM EDT Plan of Treatment Health Maintenance Due Date Last Done Comments DEPRESSION SCREENING 1998 SMOKING Hx and SMOKELESS TOBACCO SCREENING 1999 HEPATITIS C SCREENING 2004 HIV ONE-TIME SCREENING (18-6 5 YEARS) 2004 PNEUMOCOCCAL VACCINES (0-49 years) (1 of 2 - PCV) 2005 Adult Td,Tdap Booster 05/24/2022 05/24/2012 , 04/16/1999 COVID-19 VACCINE (2 - 2023-2 5 season) 2024 11/15/2020 PAP SMEAR 11/29/2025 11/29/2024, 03/25/2021 HIB VACCINES Completed 01/24/1990 HEPATITIS A VACCINES Aged Out No long er eligible based on patient's age to complete this topic MENINGOCOCCAL VACCINES (ACWY) Aged Out No longer eligible based on patient's age to complete this topic MENINGOCOCCAL VACCINES (B) Aged Out N o longer eligible based on patient's age to complete this topic Medical Devices Not on file Procedures Procedure Name Priority Date/Time Associated Diagnosis Comments PAP TEST Routine 11/29/2024 12:00 AM EST from Last 3 Months or Most Recently Relevant to Health Maintenance Results * Pap Test (11/29/2024 12:00 AM EST) 11/29/2024 11/30/2024 9:3 2 AM EST Narrative SEE NARRATIVE - 12/04/2024 5:49 PM EDT [address] [address] Transplant Coordinator: Jose Alfredo Farias MD CHROME TANNING DRUM OPERATOR Cytology Report FINAL DIAGNOSIS A. PAP SMEAR (THIN PREP) CE: SPECIMEN ADEQUACY: Satisfactory for evaluation; transformation zone present. INTERPRETATION: NEGATIVE FOR INTRAEPITHELIAL LESION OR MALIGNANCY. This specimen was analyzed by the automated ThinPrep Imaging System ([employer].) and manually rescreened by a mechanical spreader operator and/or pathologist. Electronically Signed Out By: Jose Alfredo Farias MD By his/her signature above, the pathologist listed as making the Final Diagnosis certifies that he/she has personally reviewed this case and confirmed or corrected the diagnosis. The Pap test is a screening test primarily for squamous cancers and precursors and has associated false-negative and false-positive results. New technologies such as liquid-based preparations may decrease but will not eliminate all false-negative results. Regular sampling and follow-up of unexplained clinical signs and symptoms are recommended to minimize false negative results. PROCEDURES/ADDENDA HPV Testing (Requested) Ordered Date: 11/30/2024 A. PAP SMEAR (THIN PREP) CE: High-risk HPV Panel w/ extended genotyping NEG HPV 16-NEG HPV 18-NEG HPV 45-NEG HPV 33/58-NEG HPV 31-NEG HPV 56/59/66-NEG HPV 51-NEG HPV 52-NEG HPV 35/39/68-NEG Performed by real-time polymerase chain reaction (PCR) at [facility], [address] [place] [address] using the FDA-approved BD Onclarity9 HPV Assay with extended genotyping. Uses of the assay in scenarios other than those approved by the FDA should be considered off-label use. The accuracy and precision of this test for all other off-label specimen sources has been verified in the Cytopathology Laboratory of the [facility] and has not been cleared or approved by the U.S. Food and Drug Administration. Clinical correlation is advised. The assay assesses the E6/E7 DNA target and utilizes human beta globin as an internal control. Cytology and HPV testing are screening assays and should not be used as the sole means of detecting cancer. False-positives and false-negatives can occur. CLINICAL HISTORY Date of Last Menstrual Period: 11-22-2024 Other Clinical Conditions: Screening Pap SPECIMEN SOURCE A: PAP SMEAR (THIN PREP) CE Patient Name: [address] : 1985 (Age: 39) Sex: F Institution: [facility] Location: [facility] Date of Collection: 11/29/2024 Date of Reported: 12/04/2024 17:49 Results to: Bela Mcnulty MD us Bela Mcnulty MD CYTOLOGY ORDERABLES Final Resu lt SEE NARRATIVE from Last 3 Months or Most Recently Relevant to Health Maintenance Insurance [facility] POS [facility] OUT [facility] POS BLUE CROSS OUT OF STATE POS BLUE CROSS OUT OF STATE POS BLUE CROSS OUT OF STATE POS [facility] OUT STATE POS [facility] [place] [id number] [facility] [place] [id number] [facility] [place] [address] Care Teams Money Market Clerk Relationship Specialty Start Date End Date Cyndi Cutler MD [address] [place] [address] [place] [address] [email or web address] Document Preparation.Freepath PCP - General 03/07/21 Additional Source Comments The information contained in this document represents components of the legal health record. It is not the complete legal health record.[facility]
--- OUTSIDE RECORDS SUMMARY | 2025-05-30 16:17 | XMS_ITS | Clinical Summary ---
Author Organization [facility] Address [address] [place] [address] Phone Care Team Providers Care Student Affairs Dean Name Role Phone Unavailable Primary Care Provider [...] 04/16/2009 04/16/1999, 09/26/1997, 07/27/1997, Additional history exists HPV Vaccines (1 - 3-dose SCDM series) 2013 Influenza Vaccines (#1) 2025 COVID-19 Vaccine ( season) 2025 HIB Vaccines Completed 01/24/1990 IPV Vaccines Completed 07/27/1997, 08/3 09/1996, 01/24/1991, Additional history exists MMR Vaccines Completed 12/18/1997, 11/24/1997 Hepatitis B Vaccines Completed 04/12/2001, 04/16/1999, 12/18/1997 Hepatitis A Vaccines Aged Out No long [...]
--- OUTSIDE RECORDS SUMMARY | 2025-05-30 16:17 | XMS_ITS | Encounter Summary ---
Author Organization [facility] Address [address] [place] [address] Phone Care Team Providers Care Poultry Culler Name Role Phone Jenny Tao NP Primary Care Provider Sarita alvarez Encounter Details Date Type Department Care Team (Late st Contact Info) Description 05/13/2017 Conversion Encounter [facility] - [address] [address] Social History Tobacco Use Types Packs/Day Years [...] on filedocumented in this encounter Care Teams Poultry Culler Relationship Specialty Start Date End Date Jenny Tao NP PCP - General 05/07/17 01/12/23 documented as of this encounter
== END 2025-05-30 16:30 | disposition home or self-care (01) ==
LOC: HO.HGI 14:01
PROVIDERS: PCP Nurse Practitioner Family; Visit Provider Internal Medicine
DX: K58.9 Irritable bowel syndrome, unspecified (principal); R10.9 Unspecified abdominal pain; R19.4 Change in bowel habit; K76.0 Fatty (change of) liver, not elsewhere classified
CPT/HCPCS: 99214

== ENCOUNTER 2025-07-05 06:05 | Day surgery (SDC) | payer BC, SELFPAY ==
--- OUTSIDE RECORDS SUMMARY | 2025-06-18 12:24 | XMS_ITS | Patient Health Record ---
Author Organization [facility] Address [address] [place] [id number] Support Name Relationship Address Phone [address] Guarantor Unknown [phone] Reason For Referral No Information Immunizations Vaccine Route Administration Date Status Comme nts COVID-19 Vaccine(Moderna) 2nd dose IM Intramuscular 11/15/2020 Administered Plan Of Treatment No Information Insurance Providers Payer Name Payer Address Payer Phone Subscriber Number Group Number Insured Name Patient Relationship to Insured Coverage Start Date Coverage End Date [facility] Plan [address] [address] [place] [id number] Self - patient is the insured
--- OUTSIDE RECORDS SUMMARY | 2025-06-18 12:24 | XMS_ITS | Clinical Summary ---
Author Organization [facility] Address [address] [place] [address] Phone Care Team Providers Care Senior Court Office Assistant Name Role Phone Unavailable Primary Care Provider [...]
--- OUTSIDE RECORDS SUMMARY | 2025-06-18 12:25 | XMS_ITS | Clinical Summary ---
Author Organization [facility] [place] Address [address] [facility] [address] [place] [phone] Phone Care Team Providers Care Sock And Stocking Ironer Name Role Phone Cyndi Cutler MD Primary Care Provider [phone] Allergies Active Allergy Reactions Criticality Noted Date [...] Adult Td,Tdap Booster 05/24/2022 05/24/2012 , 04/16/1999 INFLUENZA VACCINE (#1) 2025 COVID-19 VACCINE (2 - 2024-2 6 season) 2025 11/15/2020 PAP SMEAR 11/29/2025 11/29/2024, 03/25/2021 HIB [...] SEE NARRATIVE - 12/04/2024 5:49 PM EDT [address] [address] Automation Tender: Jose Alfredo Farias MD MECHANICAL SERVICE REPRESENTATIVE Cytology Report FINAL DIAGNOSIS A. PAP SMEAR (THIN PREP) CE: SPECIMEN ADEQUACY: Satisfactory for evaluation; transformation zone present. INTERPRETATION: NEGATIVE FOR INTRAEPITHELIAL LESION OR MALIGNANCY. This specimen was analyzed by the automated ThinPrep Imaging System ([employer].) and manually rescreened by a water filterer and/or pathologist. Electronically Signed Out By: Jose [...] by real-time polymerase chain reaction (PCR) at [facility], [address] [place] [address] using the FDA-approved BD Onclarity9 HPV Assay with extended genotyping. Uses of the assay in scenarios other than those approved by the FDA should be considered off-label use. The accuracy and precision of this test for all other off-label specimen sources has been verified in the Cytopathology Laboratory of the [facility] and has not been cleared or [...] : 1985 (Age: 39) Sex: F Institution: [facility] Location: [facility] Date of Collection: 11/29/2024 Date of Reported: 12/04/2024 17:49 Results to: Bela Mcnulty MD us Bela Mcnulty MD CYTOLOGY ORDERABLES Final Resu lt SEE NARRATIVE from Last 3 Months or Most Recently Relevant to Health Maintenance Insurance [facility] POS [facility] POS BLUE CROSS OUT OF STATE POS BLUE CROSS OUT OF STATE POS BLUE CROSS OUT OF STATE POS [facility] [place] [id number] Care Teams Sock And Stocking Ironer Relationship Specialty Start Date End Date Cyndi Cutler MD [address] [place] [phone] [email or web address] PCP - General 03/07/21 Additional Source Comments The information contained in this document represents components of the legal health record. It is not the complete legal health record.[facility]
--- OUTSIDE RECORDS SUMMARY | 2025-06-18 12:25 | XMS_ITS | Encounter Summary ---
Author Organization [facility] Address [address] [place] [address] Phone Care Team Providers Care Paste Up Artist Apprentice Name Role Phone Jenny Tao NP Primary Care Provider Sarita alvarez Encounter Details Date Type Department Care Team (Late st Contact Info) Description 05/13/2017 Conversion Encounter [facility] - [address] [address] Social History Tobacco Use Types Packs/Day Years [...] on filedocumented in this encounter Care Teams Paste Up Artist Apprentice Relationship Specialty Start Date End Date Jenny Tao NP PCP - General 05/07/17 01/12/23 documented as of this encounter
[2025-07-03 11:05] VITALS: BMI 24.5
--- NOTE | 2025-07-04 11:19 | HO.ANESPROP2 ---
Documented by User: Peri Acuña NP 07/04/25 11:20 HPI - Anesthesia Eval Consult details Narrative: 39 yr old female for Upper Endoscopy and Colonoscopy +marijuana use PMF Active Problems Active Problems: All Active Problems Dermatitis of lip (Acute) Pyrosis (Acute) Fatty liver (Acute) PVCs (premature ventricular contractions) (Acute) Change in bowel habit (Acute) Heart palpitations (Acute) IBS (irritable bowel syndrome) (Acute) Anxiety and depression (Acute) Laboratory tests ordered as part of a complete physical exam (CPE) (Acute) Past Medical History Medical History Depression Eczema Memory loss Generalized headaches Sludge in gallbladder Intestinal obstruction Surgical abdomen Reflux esophagitis IBS (irritable bowel syndrome) Family History Family History Brother Cholangiocarcinoma Mother Diabetes High blood pressure Father Diabetes High blood pressure Sister Diabetes Fatty liver Surgical History Surgical History Hx of colonoscopy History of esophagogastroduodenoscopy (EGD) H/O resection of large bowel Social History Social History Household Members: Children Housing: House Housing Other:: two family home Do you presently have visiting nurse or other home services: No Alcohol intake: current Alcohol intake frequency: does not drink Alcohol type: wine and hard liquor Patient Tobacco Use Status: Current someday Tobacco user e-Cigarette/Vaping Use: Former Use Second Hand Smoke Exposure: Yes Substance Use Type: Marijuana Have you been hit, kicked, punched, or otherwise hurt by someone within the past year? 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 Cognitive needs: No Hearing needs: No Vision needs: No Meds Allergies Allergy/AdvReac Type Severity Reaction Status Date / Time penicillin V Allergy Unknown hives Verified 05/30/25 14:36 Penicillins (PENICILLINS) Allergy Unknown RASH Verified 05/30/25 14:36 Sulfa (Sulfonamide Allergy Unknown Unknown Verified 05/30/25 14:36 Antibiotics) lubiprostone (From Amitiza) AdvReac Severe Blister Verified 05/30/25 14:36 Exam Height,Weight and Vital Signs: Height 5 ft 2 in Weight 60.781 kg Documented by User: Claudette Lyon MD 07/05/25 07:04 PMF Past Medical History Medical History Depression Eczema Memory loss Generalized headaches Sludge in gallbladder Intestinal obstruction Surgical abdomen Reflux esophagitis IBS (irritable bowel syndrome) Family History Family History Brother Cholangiocarcinoma Mother Diabetes High blood pressure Father Diabetes High blood pressure Sister Diabetes Fatty liver Family history of problems with anesthesia: No Surgical History Surgical History Hx of colonoscopy History of esophagogastroduodenoscopy (EGD) H/O resection of large bowel History of Problems with Anesthesia: No Social History Social History Household Members: Children Housing: House Housing Other:: two family home Do you presently have visiting nurse or other home services: No Alcohol intake: current Alcohol intake frequency: does not drink Alcohol type: wine and hard liquor Patient Tobacco Use Status: Current someday Tobacco user e-Cigarette/Vaping Use: Former Use Second Hand Smoke Exposure: Yes Substance Use Type: Marijuana Have you been hit, kicked, punched, or otherwise hurt by someone within the past year? 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[place] Cognitive needs: No Hearing needs: No Vision needs: No Meds Allergies Allergy/AdvReac Type Severity Reaction Status Date / Time penicillin V Allergy Unknown hives Verified 05/30/25 14:36 Penicillins (PENICILLINS) Allergy Unknown RASH Verified 05/30/25 14:36 Sulfa (Sulfonamide Allergy Unknown Unknown Verified 05/30/25 14:36 Antibiotics) lubiprostone (From Amitiza) AdvReac Severe Blister Verified 05/30/25 14:36 Exam Airway Mallampati Class: II (caps top front teeth) TM Dist: >3cm Neck ROM: Full Heart: rrr Lungs: cta Assessment and Plan Assessment Anesthesia Assessment: Anesthesia Plan Discussed and Chart Reviewed Final Anesthetic Review Family History of Problems with Anesthesia: No History of Problems with Anesthesia: No NPO: Yes ASA Class: II Final Preanesthetic Review: No Changes in Pt Med Stat, Meds/Allgs Chart Reviewed and Consent Obtained/Reviewed Patient Risk: Intermediate Procedure Risk: Intermediate Anesthetic Plan Anesthetic Plan: MAC: Disposition: Standard PACU
[2025-07-05] VITALS (8 sets, daily range): BP systolic 79–109; BP diastolic 43–69; PULSE 65–87; RESP 15–20; TEMP 36.1–36.7; O2SAT 96–100; BMI 24.1
[2025-07-05 06:55] LABS: UPreg QC Valid YES
[2025-07-05] MEDS: Lactated Ringers 1,000 ML 100 ML IVCONT (06:58)
--- NOTE | 2025-07-05 07:51 | MHC.SHP ---
Pre-Procedural Eval Section A - 24 Hr Update-Section A only Date of Service: 07/05/25 The patient is an INPATIENT: No The patient has been examined within 24 hours of the surgical procedure. The History & Physical has been completed within 30 days and I have reviewed it.: Yes Section B - Complete if H&P > 30 days Chief Complaint: IBS,abdominal pain,change in bowel habit Allergies: Allergies Allergy/AdvReac Type Severity Reaction Status Date / Time penicillin V Allergy Unknown hives Verified 05/30/25 14:36 Penicillins (PENICILLINS) Allergy Unknown RASH Verified 05/30/25 14:36 Sulfa (Sulfonamide Allergy Unknown Unknown Verified 05/30/25 14:36 Antibiotics) lubiprostone (From Amitiza) AdvReac Severe Blister Verified 05/30/25 14:36 Plan Diagnosis/Plan: Unchanged I have reviewed the history and physical and performed a pertinent physical examination on my patient. No changes have occurred unless specified. Time Spent With Patient Time: Total time managing care of this patient today ____ minutes.
--- NOTE | 2025-07-05 08:20 | P.OPN-COLO_ITS ---
Colonoscopy Operative Note Operative Note Date of Service: 07/05/25 Narrative: Procedure: Upper endoscopy and colonoscopy Indication: Abd pain, chronic diarrhea Endoscopist: Latoya Gupta MD Anesthesia Provider: Dr Claudette Hernandez Anesthesia type: MAC Instrument: [id number] and [id number] EGD Procedure:?? The procedure, indications, preparation and potential complications were reviewed with the patient, who indicated understanding and gave written informed consent to proceed. The endoscope was introduced through the mouth, and advanced to the 2nd part of the duodenum. The mucosa was carefully examined on slow withdrawal of the endoscope. The patient tolerated the procedure well. There were no immediate complications.? EGD Findings:? * Esophagus:? Normal esophageal mucosa was noted. The Z-line was at 35 cm. Cold forceps biopsies were taken from middle esophagus to rule out eosinophilic esophagitis. * Stomach:? Normal gastric mucosa. Retroflexion was performed in the cardia. Random cold forceps biopsies were taken from the stomach. * Duodenum:? Normal duodenal mucosa. Cold forceps biopsies were taken from the duodenal bulb and 2nd portion of the duodenum to rule out celiac sprue. Colonoscopy Procedure:? The patient was then turned for the colonoscopy. A digital rectal exam was performed which was normal.? A distal attachment cap was affixed to the tip of the scope and the colonoscope was then inserted through the anus and advanced through the colon and advanced to the cecum at 70 cm and terminal ileum.? Appendiceal orifice and ileocecal valve were identified. Mucosa was carefully examined under high definition white light as the instrument was slowly withdrawn in a retrograde panoramic fashion. Retroflexion was performed in rectum. The procedure was not difficult. The quality of the prep was BBPS: 3+3+3 = adequate Withdrawal time 6 minutes Limitations: No limitations Findings: Mucosa: Normal colon and terminal ileum mucosa. Cold forceps biopsies were taken from the right and left side of the colon to rule out microscopic colitis. Protruding lesions: * * Small internal hemorrhoids without stigmata of recent bleeding. Impression: 1. Normal esophagus (biopsy) 2. Normal stomach (biopsy) 3. Normal duodenum (biopsy) 4. Normal colon and terminal ileum mucosa (biopsy) 5. Internal hemorrhoids Recommendations:?? * Follow-up path results * Avoid NSAIDs * H Pylori treatment if biopsies + * Commence asymptomatic colorectal ca screening at age 45.
== END 2025-07-05 09:06 | disposition home or self-care (01) ==
PROVIDERS: Nurse Practitioner; PCP Nurse Practitioner Family; Visit Provider Internal Medicine
PROC: (CPT 43239; principal; 2025-07-05 07:30)
DX: R19.4 Change in bowel habit (principal); K58.9 Irritable bowel syndrome, unspecified; R10.9 Unspecified abdominal pain; K64.8 Other hemorrhoids
CPT/HCPCS: 43239; 45380; 81025; 88305; 88313; 88342; J2003; J2704

== ENCOUNTER → 2025-07-05 06:05 | Outpatient (BNV) | payer BC, SELFPAY | PROVIDERS: PCP Nurse Practitioner Family; Visit Provider Internal Medicine | DX: R10.9 Unspecified abdominal pain (principal); K52.9 Noninfective gastroenteritis and colitis, unspecified; K64.8 Other hemorrhoids | CPT/HCPCS: 43239; 45380 ==